=== PATIENT | male | born 1955 | race Caucasian/White ===

== ENCOUNTER 2017-07-07 10:17 | Emergency (ER) | payer OTHER ==
[2017-07-07] MEDS ORDERED: SODIUM CHLORIDE 0.9% 500 ML IV STA (11:31)
[2017-07-07] MEDS ORDERED: RX INFO: IV CONTRAST WAS GIVEN 1 EACH MISC MISCELLANE PRN (11:31)
[2017-07-07 12:08] LABS: HCT 44.8 % (39.0-53.0); HGB 15.2 gm/dL (13.0-17.5); MCH 30.9 pg (25.0-35.0); MCHC 33.9 g/dL (31.0-37.0); Mean Platelet Volume 6.9; Platelet Count 197 k/uL (150-450); RBC 4.93 m/uL (4.30-5.90); RDW 13.2 % (11.5-15.5); WBC 6.5 k/uL (3.8-10.6)
[2017-07-07 12:21] LABS: ALT 24 U/L (21-72); AST 23 U/L (17-59); Albumin 4.2 g/dL (3.5-5.0); Alkaline Phosphatase 71 U/L (38-126); Amylase 31 U/L (30-110); Anion Gap 11 mmol/L; Blood Urea Nitrogen 9 mg/dL (9-20); Carbon Dioxide 23 mmol/L (22-30); Chloride 108 mmol/L (98-107); Glucose 66 mg/dL (74-99); Lipase 61 U/L (23-300); Potassium 4.3 mmol/L (3.5-5.1); Sodium 142 mmol/L (137-145); Total Bilirubin 0.6 mg/dL (0.2-1.3); Total Protein 7.1 g/dL (6.3-8.2)
[2017-07-07 12:24] LABS: Basophils # (M) 0.07 k/uL (0-0.2); Lymphocytes # (M) 1.95 k/uL (1.0-4.8); Monocytes # (M) 0.91 k/uL (0-1.0); Neutrophils # (M) 3.38 k/uL (1.3-7.7); Neutrophils % (M) 52 %; Nucleated Red Blood Cells 0 /100 WBC (0-0); Total Cells Counted 100
--- NOTE | 2017-07-07 12:52 | ED ---
Abdominal Pain HPI - General Chief Complaint: Abdominal Pain Stated Complaint: LLQ PAIN Time Seen by Provider: 07/07/17 11:24 Source: patient, RN notes reviewed Mode of arrival: ambulatory Limitations: no limitations - History of Present Illness Initial Comments: 62-year-old male presents emergency Department with chief complaint of left- sided abdominal pain. Patient states pain started last night states at that time that was alleviated symptoms. It was worse when he lays onto his left side. Patient states she's had no change in bowel habits denies any diarrhea, constipation, hematemesis, coffee-ground emesis, hematochezia or melena. Patient states that he has no history of bowel infections including diverticulitis. Patient is concerned as his symptoms got worse last night after eating some [place] mix. Patient states the pain is improved at this time but still present. - Related Data Home Medications Medication Instructions Recorded Confirmed Sotalol [Betapace] 80 mg PO BID 12/29/15 07/07/17 Aspirin 325 mg PO DAILY 07/07/17 07/07/17 Metoprolol Succinate (ER) [Toprol 25 mg PO AC-LUNCH 07/07/17 07/07/17 Xl] Previous Rx's Medication Instructions Recorded Ciprofloxacin HCl [Cipro] 500 mg PO Q12HR #20 tablet 07/07/17 Hydrocodone/Acetaminophen [[place] 1 tab PO Q6HR PRN #15 tab 07/07/17 5-325] metroNIDAZOLE [Flagyl] 500 mg PO TID #30 tab 07/07/17 Allergies Allergy/AdvReac Type Severity Reaction Status Date / Time No Known Allergies Allergy Verified 07/07/17 12:26 Review of Systems ROS Statement: Those systems with pertinent positive or pertinent negative responses have been documented in the HPI. ROS Other: All systems not noted in ROS Statement are negative. Past Medical History Past Medical History: Atrial Fibrillation, Coronary Artery Disease (CAD), Chest Pain / Angina, Hyperlipidemia, Myocardial Infarction ([place]), Pneumonia, Pulmonary Embolus (PE), Syncope Additional Past Medical History / Comment(s): STATES on Lipitor Prophyllactic. Afib paraxysmal; OR in 2009 and 2011; Mild Heart Valve Prob. Blood Clot Removed Between Heart and 5th and 6th Ribs. RECENT SYNCOPAL EPISODE 12/29/15. Last Myocardial Infarction Date:: 2011 History of Any Multi-Drug Resistant Organisms: None Reported Past Surgical History: Coronary Bypass/CABG, Heart Catheterization With Stent Additional Past Surgical History / Comment(s): 08/2009 CABG with 7 vessel bypass ; C.Cath w/ Stents X2. Past Anesthesia/Blood Transfusion Reactions: No Reported Reaction Additional Past Anesthesia/Blood Transfusion Reaction / Comment(s): Pt received blood with CABG without reaction. Date of Last Stent Placement:: 02/13/12 Past Psychological History: No Psychological Hx Reported Smoking Status: Never smoker Past Alcohol Use History: None Reported Past Drug Use History: None Reported - Past Family History Father Family Medical History: Myocardial Infarction (OR) Additional Family Medical History / Comment(s): Father at the age of 58 yrs from a OR. Mother Family Medical History: Coronary Artery Disease (CAD) Additional Family Medical History / Comment(s): Mother at age 80 yrs. Brother(s) Family Medical History: Myocardial Infarction (OR) Additional Family Medical History / Comment(s): One brother at the age of 31 yrs from a OR. PT has other immediate family members with heart disease. General Exam Limitations: no limitations General appearance: alert, in no apparent distress Head exam: Present: atraumatic, normocephalic, normal inspection Respiratory exam: Present: normal lung sounds bilaterally. Absent: respiratory distress, wheezes, rales, rhonchi, stridor Cardiovascular Exam: Present: regular rate, normal rhythm, normal heart sounds. Absent: systolic murmur, diastolic murmur, rubs, gallop, clicks GI/Abdominal exam: Present: soft, tenderness (Mild left-sided abdominal tenderness), normal bowel sounds. Absent: distended, guarding, rebound, rigid Back exam: Absent: CVA tenderness (R), CVA tenderness (L) Course Vital Signs 07/07/17 10:53 Temperature 98.2 F Pulse Rate 57 L Respiratory 16 Rate Blood Pressure 147/78 O2 Sat by Pulse 96 Oximetry Medical Decision Making - Medical Decision Making 62-year-old male presented for left-sided abdominal pain. Patient's labwork shows mild hypoglycemia, otherwise unremarkable. Patient has CT shows evidence of diverticulitis without perforation or abscess. Patient was started on Cipro Flagyl and discharged advised to follow-up for recheck and return for any worsening symptoms. - Lab Data Result diagrams: 07/07/17 11:53 07/07/17 11:53 Lab Results 07/07/17 07/07/17 07/07/17 Range/Units 11:53 11:53 11:53 WBC 6.5 (3.8-10.6) k/uL RBC 4.93 (4.30-5.90) m/uL Hgb 15.2 (13.0-17.5) gm/dL Hct 44.8 (39.0-53.0) % MCV 91.0 (80.0-100.0) fL MCH 30.9 (25.0-35.0) pg MCHC 33.9 (31.0-37.0) g/dL RDW 13.2 (11.5-15.5) % Plt Count 197 (150-450) k/uL Neutrophils % (Manual) 52 % Lymphocytes % (Manual) 30 % Monocytes % (Manual) 14 % Eosinophils % (Manual) 3 % Basophils % (Manual) 1 % Neutrophils # (Manual) 3.38 (1.3-7.7) k/uL Lymphocytes # (Manual) 1.95 (1.0-4.8) k/uL Monocytes # (Manual) 0.91 (0-1.0) k/uL Eosinophils # (Manual) 0.20 (0-0.7) k/uL Basophils # (Manual) 0.07 (0-0.2) k/uL Nucleated RBCs 0 (0-0) /100 WBC Manual Slide Review Performed Sodium 142 (137-145) mmol/L Potassium 4.3 (3.5-5.1) mmol/L Chloride 108 H (98-107) mmol/L Carbon Dioxide 23 (22-30) mmol/L Anion Gap 11 mmol/L BUN 9 (9-20) mg/dL Creatinine 0.80 (0.66-1.25) mg/dL Est GFR (MDRD) Af Amer >60 (>60 ml/min/1.73 sqM) Est GFR (MDRD) Non-Af >60 (>60 ml/min/1.73 sqM) Glucose 66 L (74-99) mg/dL POC Glucose (mg/dL) (75-99) mg/dL POC Glu Breakfast Server ID Plasma Lactic Acid [place] 0.9 (0.7-2.0) mmol/L Calcium 10.0 (8.4-10.2) mg/dL Total Bilirubin 0.6 (0.2-1.3) mg/dL AST 23 (17-59) U/L ALT 24 (21-72) U/L Alkaline Phosphatase 71 (38-126) U/L Total Protein 7.1 (6.3-8.2) g/dL Albumin 4.2 (3.5-5.0) g/dL Amylase 31 (30-110) U/L Lipase 61 (23-300) U/L Urine Color Urine Appearance (Clear) Urine pH (5.0-8.0) Ur Specific [place] (1.001-1.035) Urine Protein (Negative) Urine Glucose (UA) (Negative) Urine Ketones (Negative) Urine Blood (Negative) Urine Nitrite (Negative) Urine Bilirubin (Negative) Urine Urobilinogen (<2.0) mg/dL Ur Leukocyte Esterase (Negative) 07/07/17 07/07/17 Range/Units 13:00 13:05 WBC (3.8-10.6) k/uL RBC (4.30-5.90) m/uL Hgb (13.0-17.5) gm/dL Hct (39.0-53.0) % MCV (80.0-100.0) fL MCH (25.0-35.0) pg MCHC (31.0-37.0) g/dL RDW (11.5-15.5) % Plt Count (150-450) k/uL Neutrophils % (Manual) % Lymphocytes % (Manual) % Monocytes % (Manual) % Eosinophils % (Manual) % Basophils % (Manual) % Neutrophils # (Manual) (1.3-7.7) k/uL Lymphocytes # (Manual) (1.0-4.8) k/uL Monocytes # (Manual) (0-1.0) k/uL Eosinophils # (Manual) (0-0.7) k/uL Basophils # (Manual) (0-0.2) k/uL Nucleated RBCs (0-0) /100 WBC Manual Slide Review Sodium (137-145) mmol/L Potassium (3.5-5.1) mmol/L Chloride (98-107) mmol/L Carbon Dioxide (22-30) mmol/L Anion Gap mmol/L BUN (9-20) mg/dL Creatinine (0.66-1.25) mg/dL Est GFR (MDRD) Af Amer (>60 ml/min/1.73 sqM) Est GFR (MDRD) Non-Af (>60 ml/min/1.73 sqM) Glucose (74-99) mg/dL POC Glucose (mg/dL) 68 L (75-99) mg/dL POC Glu Breakfast Server ID Silvana Rodrigues Plasma Lactic Acid Eloy (0.7-2.0) mmol/L Calcium (8.4-10.2) mg/dL Total Bilirubin (0.2-1.3) mg/dL AST (17-59) U/L ALT (21-72) U/L Alkaline Phosphatase (38-126) U/L Total Protein (6.3-8.2) g/dL Albumin (3.5-5.0) g/dL Amylase (30-110) U/L Lipase (23-300) U/L Urine Color Light Yellow Urine Appearance Clear (Clear) Urine pH 6.5 (5.0-8.0) Ur Specific [place] 1.004 (1.001-1.035) Urine Protein Negative (Negative) Urine Glucose (UA) Negative (Negative) Urine Ketones Negative (Negative) Urine Blood Negative (Negative) Urine Nitrite Negative (Negative) Urine Bilirubin Negative (Negative) Urine Urobilinogen <2.0 (<2.0) mg/dL Ur Leukocyte Esterase Negative (Negative) Disposition Clinical Impression: Acute diverticulitis Disposition: HOME SELF-CARE Condition: Stable Instructions: Diverticulitis (ED), Diverticulitis Diet (ED) Additional Instructions: Please return to the Emergency Department if symptoms worsen or any other concerns. Prescriptions: Ciprofloxacin HCl [Cipro] 500 mg PO Q12HR #20 tablet Hydrocodone/Acetaminophen [[place] 5-325] 1 tab PO Q6HR PRN #15 tab PRN Reason: Pain metroNIDAZOLE [Flagyl] 500 mg PO TID #30 tab Referrals: Raymundo Harkins MD [Primary Care Provider] - 1-2 days Time of Disposition: 13:18
[2017-07-07 13:01] LABS: Glucose,Whole Blood 68 mg/dL (75-99)
--- NOTE | 2017-07-07 13:04 | CT ---
EXAMINATION TYPE: CT abdomen pelvis w con DATE OF EXAM: 07/07/2017 REFERENCE: None. HISTORY: abdominal pain left sided HISTORY: Left sided abdominal pain. REFERENCE: NONE CT DLP: 959.4 mGy Automated exposure control for dose reduction was used. TECHNIQUE: Helical acquisition through the abdomen and pelvis was obtained following the oral ingesti on of without Oral Contrast and following intravenous administration of 100 mL of Omnipaque 300. The data was reformatted in axial, coronal and sagittal projections. FINDINGS: There is minimal dependent atelectasis in the dependent portions of the lungs. There is no pleural or pericardial fluid. The heart is mildly enlarged. Within the abdomen, there is a tiny hiatal hernia. The liver, spleen and gallbladder are normal. The pancreas is unremarkable. Both adrenal glands are normal. Both kidneys demonstrate function and appear morphologically normal. There is mild atheromatous calcification of the aorta. There is no significant retroperitoneal, iliac or inguinal adenopathy. The bladder is unremarkable. There are numerous diverticula within the sigmoid colon. There are scattered diverticula throughout t he remainder of the left side of the colon. There is mild inflammatory change adjacent to the mid phil cending colon suggestive of mild diverticulitis. The appendix is not visualized. Small bowel loops are of normal caliber. No free fluid and no free air is seen. There is degenerative disc disease and hypertrophic spondylosis at L4-5 and also degenerative disc di sease at L5-S1. There is mild hypertrophic spondylosis in the lower dorsal spine. IMPRESSION: 1. ACUTE DIVERTICULITIS WITHOUT EVIDENCE OF BOWEL PERFORATION OR ABSCESS FORMATION. 2. MILD CARDIOMEGALY. 3. TINY HIATAL HERNIA. 4. DEGENERATIVE CHANGES WITHIN THE SPINE.
[2017-07-07 13:16] LABS: Appearance,Urine Clear (Clear); Bilirubin,Urine Negative (Negative); Blood,Urine Negative (Negative); Color,Urine Light Yellow; Glucose,Urine (UA) Negative (Negative); Ketones,Urine Negative (Negative); Leukocyte Esterase,Urine Negative (Negative); Nitrite,Urine Negative (Negative); PH, Urine 6.5 (5.0-8.0); Protein,Urine Negative (Negative); Specific Gravity,Urine 1.004 (1.001-1.035); Urobilinogen,Urine <2.0 mg/dL (<2.0)
[2017-07-07] MEDS ORDERED: metroNIDAZOLE 500 MG TAB PO STA (13:16)
[2017-07-07] MEDS ORDERED: CIPROFLOXACIN HCL 500 MG TAB PO STA (13:16)
[2017-07-07 13:21] LABS: Glucose,Whole Blood 99 mg/dL (75-99)
[2017-07-07 13:49] LABS: Glucose,Whole Blood 117 mg/dL (75-99)
[2017-07-07 13:50] VITALS: BP 136/65; PULSE 66; RESP 18; TEMP 97.5
== END 2017-07-07 13:53 | disposition home or self-care (01) ==
LOC: EC 10:17
DX: K57.92 Diverticulitis of intestine, part unspecified, without perforation or abscess without bleeding (principal); E16.2 Hypoglycemia, unspecified; I48.0 Paroxysmal atrial fibrillation; E78.5 Hyperlipidemia, unspecified; I25.10 Atherosclerotic heart disease of native coronary artery without angina pectoris; I25.2 Old myocardial infarction; Z79.82 Long term (current) use of aspirin; Z79.899 Other long term (current) drug therapy; Z86.79 Personal history of other diseases of the circulatory system
CPT/HCPCS: 36415; 80053; 82150; 83605; 83690; 85025; 81003; 74177; 99284; 96360; Q9967

== ENCOUNTER 2018-03-11 16:12 | Emergency (ER) | payer OTHER ==
[2018-03-11 16:16] VITALS: TEMP 98.7
[2018-03-11 17:52] LABS: Basophils # (A) 0.1 k/uL (0-0.2); Basophils % (A) 1 %; Eosinophils # (A) 0.2 k/uL (0-0.7); Eosinophils % (A) 3 %; HCT 45.4 % (39.0-53.0); HGB 16.1 gm/dL (13.0-17.5); Lymphocytes # (A) 1.6 k/uL (1.0-4.8); Lymphocytes % (A) 32 %; MCH 31.5 pg (25.0-35.0); MCHC 35.4 g/dL (31.0-37.0); MCV 88.9 fL (80.0-100.0); Mean Platelet Volume 7.1; Monocytes # (A) 0.5 k/uL (0-1.0); Monocytes % (A) 10 %; Neutrophils # (A) 2.4 k/uL (1.3-7.7); Neutrophils % (A) 47 %; Platelet Count 190 k/uL (150-450); RBC 5.11 m/uL (4.30-5.90); RDW 12.8 % (11.5-15.5)
--- NOTE | 2018-03-11 18:01 | ED ---
Recheck HPI - General Chief Complaint: Recheck/Abnormal Lab/Rx Stated Complaint: HTN, abn heart rate Time Seen by Provider: 03/11/18 16:35 Source: patient, RN notes reviewed, old records reviewed Mode of arrival: ambulatory Limitations: no limitations - History of Present Illness Initial Comments: 62-year-old male presents emergency department today with chief complaint of episodes of "tachycardia,". Patient reports that her rate was 77. He states that he also had an elevated blood pressure today at 209/93. He reports having multiple stenting procedures and has had a history of 3 heart attacks in the past. Patient reports that December for a few was given hospital they did a cardiac cath on the Patient and it was noted to be clear. Patient reports that today he felt himself go into atrial fibrillation and that was when he rechecked his blood pressure. Patient states that he had no fevers or chills. Today he denies any chest pain or shortness of breath. He reports that when he was having an episode of A. fib he felt very short of breath at that time but subsequently resolved. He felt himself go back into normal rhythm when he arrived to the emergency department. Patient's metal forger's assistant is Dr. Menendez and Dr. Raines. - Related Data Home Medications Medication Instructions Recorded Confirmed Sotalol [Betapace] 80 mg PO BID 12/29/15 03/11/18 Aspirin 325 mg PO DAILY 07/07/17 03/11/18 Metoprolol Succinate (ER) [Toprol 25 mg PO DAILY 07/07/17 03/11/18 Xl] Omeprazole [PriLOSEC] 40 mg PO DAILY 03/11/18 03/11/18 Rosuvastatin Calcium [Crestor] 40 mg PO HS 03/11/18 03/11/18 Allergies Allergy/AdvReac Type Severity Reaction Status Date / Time No Known Allergies Allergy Verified 03/11/18 16:55 Review of Systems ROS Statement: Those systems with pertinent positive or pertinent negative responses have been documented in the HPI. ROS Other: All systems not noted in ROS Statement are negative. Past Medical History Past Medical History: Atrial Fibrillation, Coronary Artery Disease (CAD), Chest Pain / Angina, Hyperlipidemia, Myocardial Infarction ([place]), Pneumonia, Pulmonary Embolus (PE), Syncope Additional Past Medical History / Comment(s): STATES on Lipitor Prophyllactic. Afib paraxysmal; [place] in 2009 and 2011; Mild Heart Valve Prob. Blood Clot Removed Between Heart and 5th and 6th Ribs. RECENT SYNCOPAL EPISODE 12/29/15. Last Myocardial Infarction Date:: 2011 History of Any Multi-Drug Resistant Organisms: None Reported Past Surgical History: Coronary Bypass/CABG, Heart Catheterization With Stent Additional Past Surgical History / Comment(s): 08/2009 CABG with 7 vessel bypass ; C.Cath w/ Stents X2. Past Anesthesia/Blood Transfusion Reactions: No Reported Reaction Additional Past Anesthesia/Blood Transfusion Reaction / Comment(s): Pt received blood with CABG without reaction. Date of Last Stent Placement:: 02/13/12 Past Psychological History: No Psychological Hx Reported Smoking Status: Never smoker Past Alcohol Use History: None Reported Past Drug Use History: None Reported - Past Family History Father Family Medical History: Myocardial Infarction ([place]) Additional Family Medical History / Comment(s): Father at the age of 58 yrs from a [place]. Mother Family Medical History: Coronary Artery Disease (CAD) Additional Family Medical History / Comment(s): Mother at age 80 yrs. Brother(s) Family Medical History: Myocardial Infarction (AL) Additional Family Medical History / Comment(s): One brother at the age of 31 yrs from a AL. PT has other immediate family members with heart disease. General Exam - General Exam Comments Initial Comments: This is a 62-year-old male. Alert and oriented. No significant distress. Limitations: no limitations General appearance: alert, in no apparent distress Head exam: Present: atraumatic, normocephalic, normal inspection Eye exam: Present: normal appearance, PERRL, EOMI. Absent: scleral icterus, conjunctival injection, periorbital swelling ENT exam: Present: normal exam, mucous membranes moist Neck exam: Present: normal inspection. Absent: tenderness, meningismus, lymphadenopathy Respiratory exam: Present: normal lung sounds bilaterally. Absent: respiratory distress, wheezes, rales, rhonchi, stridor Cardiovascular Exam: Present: regular rate, normal rhythm, normal heart sounds. Absent: systolic murmur, diastolic murmur, rubs, gallop, clicks GI/Abdominal exam: Present: soft, normal bowel sounds. Absent: distended, tenderness, guarding, rebound, rigid Extremities exam: Present: normal inspection, full ROM, normal capillary refill. Absent: tenderness, pedal edema, joint swelling, calf tenderness Back exam: Present: normal inspection Neurological exam: Present: alert, oriented X3, CN II-XII intact Psychiatric exam: Present: normal affect, normal mood Course Vital Signs 03/11/18 03/11/18 03/11/18 16:13 18:26 19:04 Temperature 98.7 F Pulse Rate 70 60 62 Respiratory 18 16 18 Rate Blood Pressure 192/93 141/78 163/79 O2 Sat by Pulse 96 95 94 L Oximetry Medical Decision Making - Medical Decision Making 62-year-old male presents emergency department today with isolated blood pressure episode and complained of some his heart was in atrial fibrillation and felt short of breath that time. He denies any chest pain. He states he feels well this time. Patient's blood pressure upon arrival is 160/74. His at- home pulp restraints were 209/93. Patient at this time states he otherwise feels well. He does have a history of cardiac stenting. This any EKG shows evidence of any acute abnormalities. His vital signs are stable. Pressure is within normal limits at this time. Patient's initial troponin is negative. Patient is on daily aspirin, no further blood thinner. Patient has been informed of this in 19 question to him why he is on a blood thinner. He reports insurance dictated that he had to be on Coumadin versus Neurontin and he states that he does not want to be on any further blood thinner. Patient has had multiple cardiologists follow-up with him in regards to this. This and he states he feels well and denies any chest pain or any other symptoms. We will discharge the Patient and have close follow-up with his primary care physician and metal forger's assistant. He does have an appointment April 11 at [facility]. Discussed trying Kristan in sooner. Patient understands treatment plan will comply. - Lab Data Result diagrams: 03/11/18 17:43 03/11/18 17:43 Lab Results 03/11/18 03/11/18 03/11/18 Range/Units 17:43 17:43 17:43 WBC 5.0 (3.8-10.6) k/uL RBC 5.11 (4.30-5.90) m/uL Hgb 16.1 (13.0-17.5) gm/dL Hct 45.4 (39.0-53.0) % MCV 88.9 (80.0-100.0) fL MCH 31.5 (25.0-35.0) pg MCHC 35.4 (31.0-37.0) g/dL RDW 12.8 (11.5-15.5) % Plt Count 190 (150-450) k/uL Neutrophils % 47 % Lymphocytes % 32 % Monocytes % 10 % Eosinophils % 3 % Basophils % 1 % Neutrophils # 2.4 (1.3-7.7) k/uL Lymphocytes # 1.6 (1.0-4.8) k/uL Monocytes # 0.5 (0-1.0) k/uL Eosinophils # 0.2 (0-0.7) k/uL Basophils # 0.1 (0-0.2) k/uL PT (9.0-12.0) sec INR (<1.2) APTT (22.0-30.0) sec Sodium 140 (137-145) mmol/L Potassium 4.5 (3.5-5.1) mmol/L Chloride 107 (98-107) mmol/L Carbon Dioxide 25 (22-30) mmol/L Anion Gap 8 mmol/L BUN 14 (9-20) mg/dL Creatinine 0.99 (0.66-1.25) mg/dL Est GFR (CKD-EPI)AfAm >90 (>60 ml/min/1.73 sqM) Est GFR (CKD-EPI)NonAf 81 (>60 ml/min/1.73 sqM) Glucose 97 (74-99) mg/dL Calcium 9.7 (8.4-10.2) mg/dL Magnesium 2.1 (1.6-2.3) mg/dL Total Bilirubin 0.5 (0.2-1.3) mg/dL AST 28 (17-59) U/L ALT 20 L (21-72) U/L Alkaline Phosphatase 74 (38-126) U/L Total Creatine Kinase 58 (55-170) U/L CK-MB (CK-2) 0.8 (0.0-2.4) ng/mL CK-MB (CK-2) Rel Index 1.4 Troponin I <0.012 (0.000-0.034) ng/mL Total Protein 7.3 (6.3-8.2) g/dL Albumin 4.2 (3.5-5.0) g/dL 03/11/18 Range/Units 17:43 WBC (3.8-10.6) k/uL RBC (4.30-5.90) m/uL Hgb (13.0-17.5) gm/dL Hct (39.0-53.0) % MCV (80.0-100.0) fL MCH (25.0-35.0) pg MCHC (31.0-37.0) g/dL RDW (11.5-15.5) % Plt Count (150-450) k/uL Neutrophils % % Lymphocytes % % Monocytes % % Eosinophils % % Basophils % % Neutrophils # (1.3-7.7) k/uL Lymphocytes # (1.0-4.8) k/uL Monocytes # (0-1.0) k/uL Eosinophils # (0-0.7) k/uL Basophils # (0-0.2) k/uL PT 9.4 (9.0-12.0) sec INR 0.9 (<1.2) APTT 22.8 (22.0-30.0) sec Sodium (137-145) mmol/L Potassium (3.5-5.1) mmol/L Chloride (98-107) mmol/L Carbon Dioxide (22-30) mmol/L Anion Gap mmol/L BUN (9-20) mg/dL Creatinine (0.66-1.25) mg/dL Est GFR (CKD-EPI)AfAm (>60 ml/min/1.73 sqM) Est GFR (CKD-EPI)NonAf (>60 ml/min/1.73 sqM) Glucose (74-99) mg/dL Calcium (8.4-10.2) mg/dL Magnesium (1.6-2.3) mg/dL Total Bilirubin (0.2-1.3) mg/dL AST (17-59) U/L ALT (21-72) U/L Alkaline Phosphatase (38-126) U/L Total Creatine Kinase (55-170) U/L CK-MB (CK-2) (0.0-2.4) ng/mL CK-MB (CK-2) Rel Index Troponin I (0.000-0.034) ng/mL Total Protein (6.3-8.2) g/dL Albumin (3.5-5.0) g/dL 03/11/18 19:12 EKG shows sinus rhythm nonspecific T-wave abnormality. Ventricular rate 64 bpm period. It was 170 ms. QRS ration 96. QTQTC's were 22/435 ms. No evidence of ST elevation or T-wave inversion. No evidence of atrial ventricular arrhythmias. - Radiology Data Radiology results: report reviewed Chest x-ray is negative for any acute disease. Disposition Clinical Impression: Episode of hypertension Disposition: HOME SELF-CARE Condition: Good Instructions: Hypertension (ED) Additional Instructions: Patient has follow-up with primary care physician and metal forger's assistant. Return to emergency department if the symptoms recurred of any alarming signs or symptoms occur. Is patient prescribed a controlled substance at d/c from ED?: No Referrals: Raymundo Harkins MD [Primary Care Provider] - 1-2 days Time of Disposition: 19:25
[2018-03-11 18:03] LABS: ALT 20 U/L (21-72); AST 28 U/L (17-59); Albumin 4.2 g/dL (3.5-5.0); Alkaline Phosphatase 74 U/L (38-126); Anion Gap 8 mmol/L; Blood Urea Nitrogen 14 mg/dL (9-20); Calcium 9.7 mg/dL (8.4-10.2); Carbon Dioxide 25 mmol/L (22-30); Chloride 107 mmol/L (98-107); Creatine Kinase 58 U/L (55-170); Glucose 97 mg/dL (74-99); INR 0.9 (<1.2); Magnesium 2.1 mg/dL (1.6-2.3); Potassium 4.5 mmol/L (3.5-5.1); Sodium 140 mmol/L (137-145); Total Bilirubin 0.5 mg/dL (0.2-1.3); Total Protein 7.3 g/dL (6.3-8.2)
[2018-03-11 18:04] LABS: Partial Thromboplastin Time 22.8 sec (22.0-30.0); Prothrombin Time 9.4 sec (9.0-12.0)
--- NOTE | 2018-03-11 18:11 | XR ---
EXAMINATION TYPE: XR chest 2V DATE OF EXAM: 03/11/2018 COMPARISON: NONE HISTORY: 05/14/2016 TECHNIQUE: Frontal and lateral views of the chest are obtained. FINDINGS: Heart is enlarged. There is no heart failure. There are sternal wires. Costophrenic angles are clear. Lungs are clear of infiltrate. Bony thorax appears intact. IMPRESSION: No active cardiopulmonary disease. No change.
[2018-03-11 18:15] LABS: Creatine Kinase MB 0.8 ng/mL (0.0-2.4); Troponin I <0.012 ng/mL (0.000-0.034)
[2018-03-11 19:06] VITALS: RESP 18
[2018-03-11 19:13] VITALS: BP 148/75
[2018-03-11 19:35] VITALS: PULSE 61
== END 2018-03-11 19:30 | disposition home or self-care (01) ==
LOC: EC 16:12
DX: I10 Essential (primary) hypertension (principal); R00.0 Tachycardia, unspecified; I48.91 Unspecified atrial fibrillation; I25.119 Atherosclerotic heart disease of native coronary artery with unspecified angina pectoris; E78.5 Hyperlipidemia, unspecified; I25.2 Old myocardial infarction; Z79.82 Long term (current) use of aspirin; Z79.899 Other long term (current) drug therapy; Z95.1 Presence of aortocoronary bypass graft; Z95.5 Presence of coronary angioplasty implant and graft; Z82.49 Family history of ischemic heart disease and other diseases of the circulatory system
CPT/HCPCS: 36415; 71046; 80053; 82550; 82553; 83735; 84484; 85025; 85610; 85730; 93005; 99285

== ENCOUNTER 2018-03-16 15:57 | Emergency (ER) | payer OTHER ==
[2018-03-16 16:01] VITALS: RESP 18
[2018-03-16] MEDS ORDERED: SODIUM CHLORIDE 0.9% 1,000 ML IV STA (16:19)
[2018-03-16] MEDS ORDERED: LABETALOL 5 MG/ML VIAL MDV IVP STA ×2 (16:20→20:04)
--- NOTE | 2018-03-16 16:53 | XR ---
EXAMINATION TYPE: XR chest 2V DATE OF EXAM: 03/16/2018 COMPARISON: 03/11/2018 INDICATION: Chest pain and hypertension TECHNIQUE: Frontal and lateral views of the chest are obtained. FINDINGS: The heart size is normal. The pulmonary vasculature is normal. The lungs are clear. Sternotomy wires are in the midline. EKG leads overlie the chest. IMPRESSION: 1. No acute pulmonary process.
[2018-03-16 16:54] LABS: HCT 46.8 % (39.0-53.0); HGB 15.9 gm/dL (13.0-17.5); MCH 30.3 pg (25.0-35.0); MCHC 34.1 g/dL (31.0-37.0); Mean Platelet Volume 7.3; Platelet Count 193 k/uL (150-450); RBC 5.26 m/uL (4.30-5.90); RDW 12.8 % (11.5-15.5); WBC 6.1 k/uL (3.8-10.6)
[2018-03-16 17:05] LABS: ALT 26 U/L (21-72); AST 27 U/L (17-59); Albumin 4.4 g/dL (3.5-5.0); Alkaline Phosphatase 72 U/L (38-126); Anion Gap 9 mmol/L; Blood Urea Nitrogen 16 mg/dL (9-20); Calcium 10.2 mg/dL (8.4-10.2); Carbon Dioxide 25 mmol/L (22-30); Chloride 106 mmol/L (98-107); Glucose 97 mg/dL (74-99); Lipase 71 U/L (23-300); Magnesium 2.1 mg/dL (1.6-2.3); Potassium 4.5 mmol/L (3.5-5.1); Sodium 140 mmol/L (137-145); Total Bilirubin 0.6 mg/dL (0.2-1.3); Total Protein 7.7 g/dL (6.3-8.2)
[2018-03-16 17:07] LABS: Partial Thromboplastin Time 24.7 sec (22.0-30.0); Prothrombin Time 9.9 sec (9.0-12.0)
[2018-03-16 17:10] LABS: Creatine Kinase 68 U/L (55-170)
[2018-03-16 17:23] LABS: Troponin I <0.012 ng/mL (0.000-0.034)
[2018-03-16 17:30] LABS: D-Dimer 0.94 mg/L FEU (<0.60)
--- NOTE | 2018-03-16 18:02 | ED ---
General Adult HPI - General Chief complaint: Chest Pain Stated complaint: High blood pressure Time Seen by Provider: 03/16/18 16:01 Source: patient, RN notes reviewed, old records reviewed Mode of arrival: ambulatory Limitations: no limitations - History of Present Illness Initial comments: This is a 62-year-old male the ER for evaluation. Patient comes in with episodic chest pain shortness of breath. Patient has history of [place] history of stents. Patient coming in with also elevated blood pressure blood pressure been elevated for about a week he does take his blood pressure home and has no history of hypertension. Patient takes metoprolol for his A. fib. Patient has and feels like he's had A. fib once or twice recently. No travel history no sick contacts no fevers no cough no congestion. Patient coming in for evaluation regarding blood pressure. Patient was seen early ER earlier this week as well as family doctor's office and spoke with [employer] operator today and was told to come to emergency room to have further evaluation of blood pressure elevation - Related Data Home Medications Medication Instructions Recorded Confirmed Sotalol [Betapace] 80 mg PO BID 12/29/15 03/16/18 Aspirin 325 mg PO DAILY 07/07/17 03/16/18 Metoprolol Succinate (ER) [Toprol 25 mg PO DAILY 07/07/17 03/16/18 Xl] Rosuvastatin Calcium [Crestor] 40 mg PO HS 03/11/18 03/16/18 Allergies Allergy/AdvReac Type Severity Reaction Status Date / Time No Known Allergies Allergy Verified 03/16/18 16:46 Review of Systems ROS Statement: Those systems with pertinent positive or pertinent negative responses have been documented in the HPI. ROS Other: All systems not noted in ROS Statement are negative. Past Medical History Past Medical History: Atrial Fibrillation, Coronary Artery Disease (CAD), Chest Pain / Angina, Hyperlipidemia, Myocardial Infarction ([place]), Pneumonia, Pulmonary Embolus (PE), Syncope Additional Past Medical History / Comment(s): [place] on Lipitor Prophyllactic. Afib paraxysmal; [place] in 2009 and 2011; Mild Heart Valve Prob. Blood Clot Removed Between Heart and 5th and 6th Ribs. RECENT SYNCOPAL EPISODE 12/29/15. Last Myocardial Infarction Date:: 2011 History of Any Multi-Drug Resistant Organisms: None Reported Past Surgical History: Coronary Bypass/CABG, Heart Catheterization With Stent Additional Past Surgical History / Comment(s): 08/2009 CABG with 7 vessel bypass ; C.Cath w/ Stents X2. Past Anesthesia/Blood Transfusion Reactions: No Reported Reaction Additional Past Anesthesia/Blood Transfusion Reaction / Comment(s): Pt received blood with CABG without reaction. Date of Last Stent Placement:: 02/13/12 Past Psychological History: No Psychological Hx Reported Smoking Status: Never smoker Past Alcohol Use History: None Reported Past Drug Use History: None Reported - Past Family History Father Family Medical History: Myocardial Infarction ([place]) Additional Family Medical History / Comment(s): Father at the age of 58 yrs from a [place]. Mother Family Medical History: Coronary Artery Disease (CAD) Additional Family Medical History / Comment(s): Mother at age 80 yrs. Brother(s) Family Medical History: Myocardial Infarction ([place]) Additional Family Medical History / Comment(s): One brother at the age of 31 yrs from a [place]. PT has other immediate family members with heart disease. General Exam Limitations: no limitations General appearance: alert, in no apparent distress Head exam: Present: atraumatic, normocephalic, normal inspection Eye exam: Present: normal appearance, PERRL, EOMI. Absent: scleral icterus, conjunctival injection, periorbital swelling ENT exam: Present: normal exam, mucous membranes moist Neck exam: Present: normal inspection. Absent: tenderness, meningismus, lymphadenopathy Respiratory exam: Present: normal lung sounds bilaterally. Absent: respiratory distress, wheezes, rales, rhonchi, stridor Cardiovascular Exam: Present: regular rate, normal rhythm, normal heart sounds. Absent: systolic murmur, diastolic murmur, rubs, gallop, clicks GI/Abdominal exam: Present: soft, normal bowel sounds. Absent: distended, tenderness, guarding, rebound, rigid Extremities exam: Present: normal inspection, full ROM, normal capillary refill. Absent: tenderness, pedal edema, joint swelling, calf tenderness Back exam: Present: normal inspection Neurological exam: Present: alert, oriented X3, CN II-XII intact Psychiatric exam: Present: normal affect, normal mood Skin exam: Present: warm, dry, intact, normal color. Absent: rash Course Vital Signs 03/16/18 03/16/18 03/16/18 15:58 16:20 16:30 Temperature 98.4 F Pulse Rate 69 73 75 Respiratory 18 18 18 Rate Blood Pressure 185/102 173/95 165/92 O2 Sat by Pulse 96 Oximetry 03/16/18 03/16/18 17:16 19:16 Temperature 97.8 F Pulse Rate 68 61 Respiratory 18 18 Rate Blood Pressure 140/65 122/73 O2 Sat by Pulse 95 Oximetry - Reevaluation(s) Reevaluation #1: 03/16/18 17:59 Medical record, prior ER record is reviewed Reevaluation #2: 03/16/18 17:59 Patient is blood pressure is significantly improved with medication here in ER EKG Findings - EKG Comments: EKG Findings:: EKG shows sinus rhythm rate of 77, MT 170, QRS 96 QTc 461 Medical Decision Making - Medical Decision Making 59 female the ER with unspecified blood pressure elevation. Patient will have increased blood pressure medication dose. Patient will follow-up with cardiology - Lab Data Result diagrams: 03/16/18 16:20 03/16/18 16:20 Lab Results 03/16/18 03/16/18 03/16/18 Range/Units 16:20 16:20 16:20 WBC 6.1 (3.8-10.6) k/uL RBC 5.26 (4.30-5.90) m/uL Hgb 15.9 (13.0-17.5) gm/dL Hct 46.8 (39.0-53.0) % MCV 89.0 (80.0-100.0) fL MCH 30.3 (25.0-35.0) pg MCHC 34.1 (31.0-37.0) g/dL RDW 12.8 (11.5-15.5) % Plt Count 193 (150-450) k/uL Neutrophils % (Manual) 53 % Lymphocytes % (Manual) 38 % Monocytes % (Manual) 6 % Eosinophils % (Manual) 3 % Neutrophils # (Manual) 3.23 (1.3-7.7) k/uL Lymphocytes # (Manual) 2.32 (1.0-4.8) k/uL Monocytes # (Manual) 0.37 (0-1.0) k/uL Eosinophils # (Manual) 0.18 (0-0.7) k/uL Nucleated RBCs 0 (0-0) /100 WBC Manual Slide Review Performed PT (9.0-12.0) sec INR (<1.2) APTT (22.0-30.0) sec D-Dimer (<0.60) mg/L FEU Sodium 140 (137-145) mmol/L Potassium 4.5 (3.5-5.1) mmol/L Chloride 106 (98-107) mmol/L Carbon Dioxide 25 (22-30) mmol/L Anion Gap 9 mmol/L BUN 16 (9-20) mg/dL Creatinine 0.92 (0.66-1.25) mg/dL Est GFR (CKD-EPI)AfAm >90 (>60 ml/min/1.73 sqM) Est GFR (CKD-EPI)NonAf 88 (>60 ml/min/1.73 sqM) Glucose 97 (74-99) mg/dL Calcium 10.2 (8.4-10.2) mg/dL Magnesium 2.1 (1.6-2.3) mg/dL Total Bilirubin 0.6 (0.2-1.3) mg/dL AST 27 (17-59) U/L ALT 26 (21-72) U/L Alkaline Phosphatase 72 (38-126) U/L Total Creatine Kinase 68 (55-170) U/L CK-MB (CK-2) 1.0 (0.0-2.4) ng/mL CK-MB (CK-2) Rel Index 1.5 Troponin I <0.012 (0.000-0.034) ng/mL NT-Pro-B Natriuret Pep pg/mL Total Protein 7.7 (6.3-8.2) g/dL Albumin 4.4 (3.5-5.0) g/dL Lipase 71 (23-300) U/L 03/16/18 03/16/18 Range/Units 16:20 16:20 WBC (3.8-10.6) k/uL RBC (4.30-5.90) m/uL Hgb (13.0-17.5) gm/dL Hct (39.0-53.0) % MCV (80.0-100.0) fL MCH (25.0-35.0) pg MCHC (31.0-37.0) g/dL RDW (11.5-15.5) % Plt Count (150-450) k/uL Neutrophils % (Manual) % Lymphocytes % (Manual) % Monocytes % (Manual) % Eosinophils % (Manual) % Neutrophils # (Manual) (1.3-7.7) k/uL Lymphocytes # (Manual) (1.0-4.8) k/uL Monocytes # (Manual) (0-1.0) k/uL Eosinophils # (Manual) (0-0.7) k/uL Nucleated RBCs (0-0) /100 WBC Manual Slide Review PT 9.9 (9.0-12.0) sec INR 1.0 (<1.2) APTT 24.7 (22.0-30.0) sec D-Dimer 0.94 H (<0.60) mg/L FEU Sodium (137-145) mmol/L Potassium (3.5-5.1) mmol/L Chloride (98-107) mmol/L Carbon Dioxide (22-30) mmol/L Anion Gap mmol/L BUN (9-20) mg/dL Creatinine (0.66-1.25) mg/dL Est GFR (CKD-EPI)AfAm (>60 ml/min/1.73 sqM) Est GFR (CKD-EPI)NonAf (>60 ml/min/1.73 sqM) Glucose (74-99) mg/dL Calcium (8.4-10.2) mg/dL Magnesium (1.6-2.3) mg/dL Total Bilirubin (0.2-1.3) mg/dL AST (17-59) U/L ALT (21-72) U/L Alkaline Phosphatase (38-126) U/L Total Creatine Kinase (55-170) U/L CK-MB (CK-2) (0.0-2.4) ng/mL CK-MB (CK-2) Rel Index Troponin I (0.000-0.034) ng/mL NT-Pro-B Natriuret Pep 120 pg/mL Total Protein (6.3-8.2) g/dL Albumin (3.5-5.0) g/dL Lipase (23-300) U/L - Radiology Data Radiology results: report reviewed (Chest x-rays negative for acute disease, CTA chest), image reviewed Disposition Clinical Impression: Atypical chest pain, Episode of hypertension, Hypertension Disposition: HOME SELF-CARE Condition: Good Instructions: Hypertension (ED) Is patient prescribed a controlled substance at d/c from ED?: No Referrals: Raymundo Harkins MD [Primary Care Provider] - 1-2 days
[2018-03-16 18:43] LABS: Eosinophils # (M) 0.18 k/uL (0-0.7); Lymphocytes # (M) 2.32 k/uL (1.0-4.8); Monocytes # (M) 0.37 k/uL (0-1.0); Neutrophils # (M) 3.23 k/uL (1.3-7.7); Neutrophils % (M) 53 %; Nucleated Red Blood Cells 0 /100 WBC (0-0); Total Cells Counted 100
--- NOTE | 2018-03-16 18:55 | CT ---
CT CHEST FOR PULMONARY EMBOLISM. EXAMINATION TYPE: CT angio chest DATE OF EXAM: 03/16/2018 INDICATION: pain CT DLP: 280.5 mGycm, Automated exposure control for dose reduction was used. CONTRAST: Patient injected with 100 mL of Isovue 370. COMPARISON: 03/12/2012 TECHNIQUE: CT of the chest is performed on a spiral scan at 2 mm thick sections. Study is performed with intravenous contrast timed for evaluation for pulmonary embolism. This will limit additional po rtions of the evaluation. 3-D MIP images reconstructed by the technologist are reviewed on the compu ter in the coronal and sagittal planes. FINDINGS: No persistent filling defects are evident to suggest an acute pulmonary embolism. No mediastinal or hilar adenopathy enlarged by CT criteria is evident. The ascending aorta diameter at the level of the main pulmonary artery is 4.1 cm. The main pulmonary artery diameter at the bifur cation is 2.9 cm. Lung windows are clear. Limited CT section through the upper abdomen are unremarkable. IMPRESSIONS: 1. No acute pulmonary embolism. 2. Ascending thoracic aortic aneurysm of 4.1 cm, increased from comparison 2011
[2018-03-16 20:35] VITALS: BP 152/77; PULSE 67; TEMP 97
== END 2018-03-16 20:33 | disposition home or self-care (01) ==
LOC: EC 15:57
DX: R07.89 Other chest pain (principal); I10 Essential (primary) hypertension; I25.119 Atherosclerotic heart disease of native coronary artery with unspecified angina pectoris; I25.2 Old myocardial infarction; I48.0 Paroxysmal atrial fibrillation; E78.5 Hyperlipidemia, unspecified; Z79.82 Long term (current) use of aspirin; Z79.899 Other long term (current) drug therapy; Z86.711 Personal history of pulmonary embolism; Z95.1 Presence of aortocoronary bypass graft; Z95.5 Presence of coronary angioplasty implant and graft
CPT/HCPCS: 36415; 93005; 85379; 83880; 80053; 82550; 82553; 83690; 83735; 84484; 85025; 85610; 85730; 71046; 71275; 99285; 96374; 96376; 96361 ×4; Q9967

== ENCOUNTER 2018-09-29 10:40 | Observation (INO) | payer OTHER ==
[2018-09-29] MEDS ORDERED: SODIUM CHLORIDE 0.9% 500 ML 500 ML IV STA (11:06)
--- NOTE | 2018-09-29 11:10 | ED ---
General Adult HPI - General Chief complaint: Dizziness Stated complaint: Near syncope Time Seen by Provider: 09/29/18 10:43 Source: patient, EMS, RN notes reviewed Mode of arrival: EMS Limitations: no limitations - History of Present Illness Initial comments: Patient is a pleasant [age]-year-old male presenting to the emergency Department with near syncopal episode. Patient was at [employer] when he got up and walked around 5 or 10 feet and became extremely lightheaded and dizzy and near syncopal. Patient was sweaty. Patient was also sweaty this morning when he was trying to get dressed. Patient has had some mild chest pressure over the past day or 2 and may have had a minimal amount today. Patient is near symptom-free at this time other than feeling somewhat cool. Patient does have a history of similar symptoms previously. Patient does have a history of previous syncopal episodes. does have previous cardiac history as well as history of pulmonary embolism and thoracic aorta aneurysm. Patient is not on any blood thinners at this point. - Related Data Home Medications Medication Instructions Recorded Confirmed Sotalol [Betapace] 80 mg PO BID 12/29/15 09/29/18 Aspirin 325 mg PO DAILY 07/07/17 09/29/18 Hydrochlorothiazide [Hydrodiuril] 25 mg PO DAILY 09/29/18 09/29/18 Lisinopril [Zestril] 20 mg PO DAILY 09/29/18 09/29/18 Metoprolol Succinate (ER) [Toprol 50 mg PO BID 09/29/18 09/29/18 XL] Omeprazole 20 mg PO DAILY 09/29/18 09/29/18 Allergies Allergy/AdvReac Type Severity Reaction Status Date / Time No Known Allergies Allergy Verified 09/29/18 11:20 Review of Systems ROS Statement: Those systems with pertinent positive or pertinent negative responses have been documented in the HPI. ROS Other: All systems not noted in ROS Statement are negative. Constitutional: Denies: fever Eyes: Denies: eye pain ENT: Denies: ear pain Respiratory: Denies: cough Cardiovascular: Reports: as per HPI, chest pain Endocrine: Denies: fatigue Gastrointestinal: Denies: abdominal pain Genitourinary: Denies: dysuria Musculoskeletal: Denies: back pain Skin: Denies: rash Neurological: Denies: weakness Past Medical History Past Medical History: Atrial Fibrillation, Coronary Artery Disease (CAD), Chest Pain / Angina, Hyperlipidemia, Myocardial Infarction ([place]), Pneumonia, Pulmonary Embolus (PE), Syncope Additional Past Medical History / Comment(s): STATES on Lipitor Prophyllactic. Afib paraxysmal; [place] in 2009 and 2011; Mild Heart Valve Prob. Blood Clot Removed Between Heart and 5th and 6th Ribs. RECENT SYNCOPAL EPISODE 12/29/15. Last Myocardial Infarction Date:: 2011 History of Any Multi-Drug Resistant Organisms: None Reported Past Surgical History: Coronary Bypass/CABG, Heart Catheterization With Stent Additional Past Surgical History / Comment(s): 08/2009 CABG with 7 vessel bypass; C.Cath w/ Stents X2. Past Anesthesia/Blood Transfusion Reactions: No Reported Reaction Additional Past Anesthesia/Blood Transfusion Reaction / Comment(s): Pt received blood with CABG without reaction. Date of Last Stent Placement:: 02/13/12 Past Psychological History: No Psychological Hx Reported Smoking Status: Never smoker Past Alcohol Use History: None Reported Past Drug Use History: None Reported - Past Family History Father Family Medical History: Myocardial Infarction ([place]) Additional Family Medical History / Comment(s): Father at the age of 58 yrs from a [place]. Mother Family Medical History: Coronary Artery Disease (CAD) Additional Family Medical History / Comment(s): Mother at age 80 yrs. Brother(s) Family Medical History: Myocardial Infarction ([place]) Additional Family Medical History / Comment(s): One brother at the age of 31 yrs from a [place]. PT has other immediate family members with heart disease. General Exam Limitations: no limitations General appearance: alert, in no apparent distress Head exam: Present: atraumatic Eye exam: Present: normal appearance, PERRL, EOMI. Absent: nystagmus ENT exam: Present: normal oropharynx Neck exam: Present: normal inspection Respiratory exam: Present: normal lung sounds bilaterally Cardiovascular Exam: Present: regular rate, normal rhythm Expanded Peripheral pulses: 2+: Radial (R), Radial (L), Posterior Tibialis (R), Posterior Tibialis (L), Dorsalis Pedis (R), Dorsalis Pedis (L) GI/Abdominal exam: Present: soft. Absent: distended, tenderness, pulsatile mass Extremities exam: Present: normal inspection. Absent: pedal edema, calf tenderness Neurological exam: Present: alert, CN II-XII intact. Absent: motor sensory deficit Expanded Neurological exam: Present: protecting the airway Speech: Present: fluid speech Motor strength exam: RUE: 5, LUE: 5, RLE: 5, LLE: 5 Psychiatric exam: Present: normal affect, normal mood Skin exam: Present: normal color Course Vital Signs 09/29/18 09/29/18 09/29/18 10:46 11:14 12:00 Temperature 98 F Pulse Rate 64 56 L 63 Respiratory 18 16 18 Rate Blood Pressure 156/89 143/77 147/83 O2 Sat by Pulse 99 98 98 Oximetry 09/29/18 12:30 Temperature Pulse Rate 61 Respiratory 16 Rate Blood Pressure 122/69 O2 Sat by Pulse 96 Oximetry EKG Findings - EKG Comments: EKG Findings:: No sinus rhythm 60. MO 170. QRS 104. QT 444. QTC 444. Normal axis. Normal QRS. T wave inversion V1 through V4 with downward QRS. Medical Decision Making - Medical Decision Making Patient reevaluated and resting comfortably in bed, symptom free at this time. Patient updated on results and plan. Case was discussed with Dr. Mcdonough, who will admit covering for Dr. childers, who admits for Dr. Harkins. - Lab Data Result diagrams: 09/29/18 10:58 09/29/18 10:58 Lab Results 09/29/18 09/29/18 09/29/18 Range/Units 10:58 10:58 10:58 WBC 6.2 (3.8-10.6) k/uL RBC 5.21 (4.30-5.90) m/uL Hgb 15.2 (13.0-17.5) gm/dL Hct 45.3 (39.0-53.0) % MCV 87.0 (80.0-100.0) fL MCH 29.2 (25.0-35.0) pg MCHC 33.6 (31.0-37.0) g/dL RDW 14.0 (11.5-15.5) % Plt Count 206 (150-450) k/uL Neutrophils % (Manual) 60 % Lymphocytes % (Manual) 20 % Monocytes % (Manual) 13 % Eosinophils % (Manual) 7 % Neutrophils # (Manual) 3.72 (1.3-7.7) k/uL Lymphocytes # (Manual) 1.24 (1.0-4.8) k/uL Monocytes # (Manual) 0.81 (0-1.0) k/uL Eosinophils # (Manual) 0.43 (0-0.7) k/uL Nucleated RBCs 0 (0-0) /100 WBC Manual Slide Review Performed RBC Morphology Normal PT 9.9 (9.0-12.0) sec INR 0.9 (<1.2) APTT 24.8 (22.0-30.0) sec Sodium 138 (137-145) mmol/L Potassium 4.8 (3.5-5.1) mmol/L Chloride 103 (98-107) mmol/L Carbon Dioxide 24 (22-30) mmol/L Anion Gap 11 mmol/L BUN 20 (9-20) mg/dL Creatinine 1.19 (0.66-1.25) mg/dL Est GFR (CKD-EPI)AfAm 74 (>60 ml/min/1.73 sqM) Est GFR (CKD-EPI)NonAf 64 (>60 ml/min/1.73 sqM) Glucose 105 H (74-99) mg/dL Calcium 10.2 (8.4-10.2) mg/dL Magnesium 2.0 (1.6-2.3) mg/dL Total Bilirubin 0.9 (0.2-1.3) mg/dL AST 27 (17-59) U/L ALT 29 (21-72) U/L Alkaline Phosphatase 76 (38-126) U/L Troponin I (0.000-0.034) ng/mL Total Protein 7.7 (6.3-8.2) g/dL Albumin 4.7 (3.5-5.0) g/dL Urine Color Urine Appearance (Clear) Urine pH (5.0-8.0) Ur Specific [place] (1.001-1.035) Urine Protein (Negative) Urine Glucose (UA) (Negative) Urine Ketones (Negative) Urine Blood (Negative) Urine Nitrite (Negative) Urine Bilirubin (Negative) Urine Urobilinogen (<2.0) mg/dL Ur Leukocyte Esterase (Negative) 09/29/18 09/29/18 Range/Units 10:58 12:00 WBC (3.8-10.6) k/uL RBC (4.30-5.90) m/uL Hgb (13.0-17.5) gm/dL Hct (39.0-53.0) % MCV (80.0-100.0) fL MCH (25.0-35.0) pg MCHC (31.0-37.0) g/dL RDW (11.5-15.5) % Plt Count (150-450) k/uL Neutrophils % (Manual) % Lymphocytes % (Manual) % Monocytes % (Manual) % Eosinophils % (Manual) % Neutrophils # (Manual) (1.3-7.7) k/uL Lymphocytes # (Manual) (1.0-4.8) k/uL Monocytes # (Manual) (0-1.0) k/uL Eosinophils # (Manual) (0-0.7) k/uL Nucleated RBCs (0-0) /100 WBC Manual Slide Review RBC Morphology PT (9.0-12.0) sec INR (<1.2) APTT (22.0-30.0) sec Sodium (137-145) mmol/L Potassium (3.5-5.1) mmol/L Chloride (98-107) mmol/L Carbon Dioxide (22-30) mmol/L Anion Gap mmol/L BUN (9-20) mg/dL Creatinine (0.66-1.25) mg/dL Est GFR (CKD-EPI)AfAm (>60 ml/min/1.73 sqM) Est GFR (CKD-EPI)NonAf (>60 ml/min/1.73 sqM) Glucose (74-99) mg/dL Calcium (8.4-10.2) mg/dL Magnesium (1.6-2.3) mg/dL Total Bilirubin (0.2-1.3) mg/dL AST (17-59) U/L ALT (21-72) U/L Alkaline Phosphatase (38-126) U/L Troponin I <0.012 (0.000-0.034) ng/mL Total Protein (6.3-8.2) g/dL Albumin (3.5-5.0) g/dL Urine Color Light Yellow Urine Appearance Clear (Clear) Urine pH 5.0 (5.0-8.0) Ur Specific [place] 1.020 (1.001-1.035) Urine Protein Negative (Negative) Urine Glucose (UA) Negative (Negative) Urine Ketones Negative (Negative) Urine Blood Negative (Negative) Urine Nitrite Negative (Negative) Urine Bilirubin Negative (Negative) Urine Urobilinogen <2.0 (<2.0) mg/dL Ur Leukocyte Esterase Negative (Negative) - Radiology Data Radiology results: report reviewed (Computed tomography scan negative for pu lmonary embolism. There is mild prominence of the aorta) Disposition Clinical Impression: Near syncope, Chest pain Disposition: ADMITTED IP TO THIS HOSP Is patient prescribed a controlled substance at d/c from ED?: No Referrals: Raymundo Harkins MD [Primary Care Provider] - 1-2 days Decision Time: 13:07
[2018-09-29 11:34] LABS: INR 0.9 (<1.2); Partial Thromboplastin Time 24.8 sec (22.0-30.0); Prothrombin Time 9.9 sec (9.0-12.0)
[2018-09-29 11:36] LABS: Albumin 4.7 g/dL (3.5-5.0); Calcium 10.2 mg/dL (8.4-10.2); Potassium 4.8 mmol/L (3.5-5.1); Total Bilirubin 0.9 mg/dL (0.2-1.3); Total Protein 7.7 g/dL (6.3-8.2)
[2018-09-29 12:01] LABS: HCT 45.3 % (39.0-53.0); HGB 15.2 gm/dL (13.0-17.5); MCH 29.2 pg (25.0-35.0); MCHC 33.6 g/dL (31.0-37.0); Mean Platelet Volume 7.3; Platelet Count 206 k/uL (150-450); RBC 5.21 m/uL (4.30-5.90); WBC 6.2 k/uL (3.8-10.6)
--- NOTE | 2018-09-29 12:12 | CT ---
EXAMINATION TYPE: CT angio chest DATE OF EXAM: 09/29/2018 11:41 AM COMPARISON: Previous study dated 03/16/2018. HISTORY: Near syncope CT DLP: 387.3 mGycm Automated exposure control for dose reduction was used. CONTRAST: CTA scan of the thorax is performed with IV Contrast, patient injected with 70 mL of Isovue 370, pulm onary embolism protocol. . FINDINGS: Visualized portions of the lungs are clear. There is no significant axillary, mediastinal o r hilar adenopathy. There is no pleural or pericardial fluid. The heart is mildly enlarged. There is no evidence of pulmonary embolus. The aortic root is mildly prominent measuring 3.8 cm. The proximal arch is aneurysmal measuring 3.5 c m. Previously this was measured at 4.1 cm. The remainder the aorta is normal in caliber. Visualized portions of the upper abdomen are unremarkable. There is mild hypertrophic spondylosis within the spine. IMPRESSION: #1 THIS EXAMINATION IS NEGATIVE FOR PULMONARY EMBOLUS. 2. MILD PROMINENCE OF THE AORTIC ROOT.
[2018-09-29 12:18] LABS: Appearance,Urine Clear (Clear); Bilirubin,Urine Negative (Negative); Blood,Urine Negative (Negative); Color,Urine Light Yellow; Glucose,Urine (UA) Negative (Negative); Ketones,Urine Negative (Negative); Leukocyte Esterase,Urine Negative (Negative); Nitrite,Urine Negative (Negative); Protein,Urine Negative (Negative); Urobilinogen,Urine <2.0 mg/dL (<2.0)
[2018-09-29 12:32] LABS: Eosinophils # (M) 0.43 k/uL (0-0.7); Lymphocytes # (M) 1.24 k/uL (1.0-4.8); Monocytes # (M) 0.81 k/uL (0-1.0); Neutrophils # (M) 3.72 k/uL (1.3-7.7); Neutrophils % (M) 60 %; Nucleated Red Blood Cells 0 /100 WBC (0-0); Total Cells Counted 100
[2018-09-29] MEDS ORDERED: ASPIRIN 81 MG PO STA (13:07)
[2018-09-29] MEDS ORDERED: NITROGLYCERIN SL TABS 0.4 MG TAB SUBLINGUAL PRN (13:07)
[2018-09-29] MEDS ORDERED: TEMAZEPAM 15 MG CAP PO PRN (14:52)
[2018-09-29] MEDS ORDERED: ALPRAZolam 0.25 MG TAB PO PRN (14:52)
--- NOTE | 2018-09-29 18:58 | CT ---
EXAMINATION TYPE: CT brain wo con DATE OF EXAM: 09/29/2018 COMPARISON: 10/08/2009 HISTORY: near syncope, htn CT DLP: 1101.4 mGycm Automated exposure control for dose reduction was used. FINDINGS: Ventricles of normal size. There is no mass effect nor midline shift. There is no sign of intracrania l hemorrhage. There is minimal cortical atrophy. Calvarium is intact. There is mild symmetric thalami c calcification. IMPRESSION: NEGATIVE CT SCAN OF THE BRAIN. NO SIGNIFICANT CHANGE.
[2018-09-29] MEDS: HYDROcodone/APAP 5-325MG 1 EACH TAB PO PRN (19:51)
[2018-09-29] MEDS ORDERED: SOTALOL 80 MG TAB PO SCH (21:00)
[2018-09-29] MEDS ORDERED: METOPROLOL SUCCINATE (ER) 50 MG TAB.ER.24H PO SCH (21:00)
--- NOTE | 2018-09-29 21:34 | HP ---
HISTORY AND PHYSICAL DATE OF SERVICE: 09/29/2018 CHIEF COMPLAINT: Dizziness and presyncope. HISTORY OF PRESENT ILLNESS: This 63-year-old gentleman with a past medical history of multiple medical problems including history of atrial fibrillation, history of CAD, history of hyperlipidemia, history of myocardial infarction, pulmonary embolism being followed by Dr. Harkins in the outpatient setting, apparently was in synagogue and the patient felt dizzy and the patient felt some heart beating fast. The patient had a presyncopal episode. The patient was sitting and patient also had similar symptomatology and the EMS was called and the patient taken to [facility]. Blood pressure was high by the EMS. At home also the patient noted the blood pressure fluctuated widely from 102/57 to 170/95, heart rate had fluctuation also. The patient came to [facility] and admitted for further evaluation and treatment. A D-Dimer was not available but the patient underwent a CT angiogram. CT angio showed no evidence of pulmonary embolism. Mild prominence of aortic root was noted. There is no history of fever, rigors or chills. No history of headache, seizures at this time. PAST MEDICAL HISTORY: History of atrial ablation, CAD, CHF, hyperlipidemia; history of myocardial infarction, pulmonary embolus and syncope. MEDICATIONS: Prior to admission include home medications are: 1. Betapace 80 mg p.o. b.i.d. 2. Omeprazole 20 mg p.o. daily. 3. Toprol-XL 50 mg p.o. b.i.d. 4. Zestril 20 mg daily. 5. HydroDIURIL 25 mg. 6. Aspirin 320 mg. ALLERGIES: None. FAMILY HISTORY: History of myocardial infarction in the family. SOCIAL HISTORY: No history of smoking. No history alcohol intake. REVIEW OF SYSTEMS: ENT: No diminished vision. No diminished hearing. CARDIOVASCULAR: As mentioned earlier. RESPIRATION: As mentioned earlier. GI no nausea or vomiting. no dysuria. CENTRAL NERVOUS SYSTEM: As mentioned earlier. ALLERGY/IMMUNOLOGY: No asthma or hayfever. MUSCULOSKELETAL: As mentioned earlier. HEMATOLOGY/ONCOLOGY: No history of anemia. ENDOCRINE: No history of diabetes or hypothyroidism. CONSTITUTIONAL: As mentioned earlier. Dermatology: Negative. Rheumatology: Negative. Psychiatry: As mentioned earlier. PHYSICAL EXAMINATION: Alert and oriented x3. Pulse 64. Blood pressure 107/70. No orthostatic changes. Respirations 20, temperature 97.8, pulse ox 97% on room air. HEENT: Conjunctivae normal. NECK: Neck is no jugular venous distention. No carotid bruit. No lymph node enlargement. CARDIOVASCULAR: S1, S2 muffled. RESPIRATIONS: Breath sounds diminished in the bases. No rhonchi. No crackles. ABDOMEN: Soft, nontender. No mass palpable. LEGS no edema. No swelling. NERVOUS SYSTEM: Higher functions as mentioned earlier. Moves all four extremities. No focal deficits. SKIN: No ulcer, rash or bleeding. JOINTS: No active deforming arthropathy. LABS: Labs at this time shows CBC within normal limits. UA unremarkable. Troponin is negative. ASSESSMENT: 1. Presyncope for evaluation, rule out orthostatic hypotension. 2. Labile hypertension. 3. History of atrial fibrillation. 4. History of coronary artery disease. 5. Hyperlipidemia. 6. History of myocardial infarction. 7. History of pulmonary embolus. 8. History of syncope. 9. History of paroxysmal atrial fibrillation. 10.History of coronary artery disease, coronary artery bypass grafting, stent. RECOMMENDATIONS AND DISCUSSION: In this 63-year-old gentleman who presented with multiple complex medical issues, we will monitor the patient closely, continue the current medications, management and symptomatic treatment. Otherwise, at this time, I recommend resume the home medications. Monitor blood pressure closely. Cardiology consultation. I would also check orthostatic vitals and also obtain a baseline CT scan of the brain and as well as neuro checks also. We will follow the patient closely. The patient may be asked to follow up with Dr. Harkins closely after discharge. The prognosis guarded. Discussed with the patient who understands and agrees. MMODL / IJN: [id number] /
[2018-09-30 07:13] LABS: Calcium 9.9 mg/dL (8.4-10.2); Potassium 4.8 mmol/L (3.5-5.1)
[2018-09-30 07:21] LABS: MCH 29.4 pg (25.0-35.0); MCHC 33.2 g/dL (31.0-37.0); MCV 88.3 fL (80.0-100.0); Mean Platelet Volume 7.4; Platelet Count 176 k/uL (150-450); RBC 4.76 m/uL (4.30-5.90); RDW 14.4 % (11.5-15.5); WBC 5.2 k/uL (3.8-10.6)
[2018-09-30] MEDS ORDERED: PANTOPRAZOLE 40 MG TABLET PO SCH ×2 (07:30)
[2018-09-30 08:04] LABS: Basophils # (M) 0.05 k/uL (0-0.2); Eosinophils # (M) 0.36 k/uL (0-0.7); Lymphocytes # (M) 1.46 k/uL (1.0-4.8); Monocytes # (M) 0.68 k/uL (0-1.0); Neutrophils # (M) 2.65 k/uL (1.3-7.7); Neutrophils % (M) 51 %; Nucleated Red Blood Cells 0 /100 WBC (0-0); Total Cells Counted 100
[2018-09-30] MEDS ORDERED: CAFFEINE CITRATE 60 MG/3 ML VIAL IV PRN (08:12)
[2018-09-30] MEDS ORDERED: REGADENOSON 0.4 MG/5 ML SYRINGE IV ONE (08:12)
[2018-09-30] MEDS ORDERED: AMINOPHYLLINE 500 MG/20 ML VIAL IV PRN (08:12)
[2018-09-30] MEDS ORDERED: DIPYRIDAMOLE IV ONE (08:30)
[2018-09-30] MEDS ORDERED: SODIUM CHLORIDE 0.9% IV ONE (08:30)
[2018-09-30] MEDS ORDERED: FENOFIBRATE 160 MG TAB PO SCH (09:00)
[2018-09-30] MEDS ORDERED: ASPIRIN 81 MG PO SCH (09:00)
[2018-09-30] MEDS ORDERED: LISINOPRIL 20 MG TAB PO SCH (09:00)
[2018-09-30] MEDS ORDERED: HYDROCHLOROTHIAZIDE 25 MG TAB PO SCH (09:00)
[2018-09-30] MEDS ORDERED: METOPROLOL SUCCINATE (ER) 25 MG TAB.ER.24H PO SCH (09:00)
[2018-09-30] MEDS ORDERED: ASPIRIN 325 MG TAB PO SCH (09:00)
--- NOTE | 2018-09-30 10:56 | CONS ---
CONSULTATION This is a 63-year-old gentleman who sees a miller kiln dried salt at [facility] for his health care needs. Before that, he used to see Dr. Haley Vallejo. In 2009, he underwent aortocoronary bypass surgery and in 2011 had stents placed. The details are not available. He had a normal stress echo in 2016. As recently as December of 2017, according to the patient, he had a cardiac cath at the [facility], was told that his vessels were patent including bypass grafts. He comes in with complaints of very nondescript sensation of dizziness and lightheadedness. He was at the anabaptism when he got up and walked around about 10 feet, felt lightheaded, dizzy, did not quite pass out, was sweaty and then complained of mild chest pressure. After coming to the ER, he was hydrated. He feels better. Denies any chest pain or shortness of breath at this time. About 2 days prior, he felt very nauseated and did not have a comfortable day. He felt he had some flu-like symptoms at that time. After arrival, he had a further evaluation performed including a CT angiography of the chest which did not reveal any evidence for pulmonary embolism. He is resting comfortably without symptoms. Denies any chest pain. His troponins are normal. EKG revealed mild precordial T-wave inversion, which seems to be a nonspecific finding with which seems to be a nonspecific finding. He is resting comfortably without symptoms at the time of my evaluation. His cardiac cath according to the patient was less than a year ago. He is intolerant of statins and has not taken any statin medications and does not intend to. However, I advised him to try Crestor 5 mg every other day and he seems receptive to the idea. PAST MEDICAL HISTORY: 1. CAD with prior bypass surgery in 2009, PCI in 2011, a negative stress echo in 2015 and a normal cath per patient at [facility] in December 2017. 2. Hypertension. 3. Hyperlipidemia. 4. Patient has been having recurrent chest pain and was advised to have a stress test which he was is scheduled for 2 weeks ago, but he canceled for some conflict with spring. MEDICATIONS: At home include sotalol 80 mg b.i.d., Toprol-XL 50 mg b.i.d., Zestril 20 mg daily, HydroDIURIL 25 mg daily, aspirin 325 mg daily. ALLERGIES: None. REVIEW OF SYSTEMS: Unremarkable other than above-mentioned facts. PHYSICAL EXAMINATION: Blood pressure is 110/70, pulse rate is 60 per minute, regular. HEENT: Unremarkable. Fundus was not examined by me. Neck is supple. There is no JVD. I do not hear a carotid bruit. There is no thyromegaly. Heart exam reveals S1, S2 heard normally without any significant murmurs. Lungs revealed decent air entry. Abdomen is soft, nontender. Lower extremities reveal normal pulses. No edema. Central nervous system is grossly within normal limits. EKG revealed sinus mechanism with nonspecific ST and T-wave abnormality. LABORATORY DATA: Reveals that his troponin levels are all normal. IMPRESSION: 1. Near syncopal spell with some dehydration, which has improved. 2. Episode of atypical chest pain in a patient with known coronary artery disease. 3. History of prior aortocoronary bypass surgery. 4. History of prior PCI. 5. According to the patient, unremarkable cardiac cath in December 2017. 6. History of hypertension. 7. History of hyperlipidemia. RECOMMENDATIONS: I am recommending that we will continue hydration, perform an echocardiogram, a Lexiscan stress test and if these are normal, he can be discharged. I will discontinue sotalol for this patient and decrease the metoprolol succinate to 275 mg daily instead of b.i.d. I discussed my thoughts in detail with the patient. Thank you very much for the consult. SHAGUFTA / DIMITRIOSN: [id number] /
--- NOTE | 2018-09-30 13:26 | US ---
EXAMINATION TYPE: US carotid duplex BILAT DATE OF EXAM: 09/30/2018 COMPARISON: NONE CLINICAL HISTORY: chest pain. EXAM MEASUREMENTS: RIGHT: Peak Systolic Velocity (PSV) cm/sec ----- Right CCA: 92.5 ----- Right ICA: 87.7 ----- Right ECA: 87.0 ICA/CCA ratio: 0.9 RIGHT: End Diastole cm/sec ----- Right CCA: 24.7 ----- Right ICA: 30.7 ----- Right ECA: 13.1 LEFT: Peak Systolic Velocity (PSV) cm/sec ----- Left CCA: 81.7 ----- Left ICA: 65.7 ----- Left ECA: 80.7 ICA/CCA ratio: 0.8 LEFT: End Diastole cm/sec ----- Left CCA: 23.2 ----- Left ICA: 23.7 ----- Left ECA: 11.5 VERTEBRALS (direction of flow): Right Vertebral: Antegrade Left Vertebral: Antegrade Rhythm: Normal Mild atherosclerotic changes, no significant velocity elevations. IMPRESSION: Criteria for Assigning % of Stenosis / Diameter reduction (Estimation based on the indirect measurements of the internal carotid artery velocities (ICA PSV). 1. Normal (no stenosis)=ICA PSV < 125 cm/s: ratio < 2.0: ICA EDV<40 cm/s. 2. Less than 50% stenosis=ICA PSV < 125 cm/s: ratio < 2.0: ICA EDV<40 cm/s. 3. 50 to 69% stenosis=ICA PSV of 125 to 230 cm/s: ration 2.0 ? 4.0: ICA EDV 40-100 cm/s. 4. Greater than 70% stenosis to near occlusion= ICA PSV > 230 cm/s: ratio > 4.0: ICA EDV > 100 cm/s. 5. Near occlusion= ICA PSV velocities may be low or undetectable: variable ratio and ICA EDV. 6. Total occlusion=unable to detect flow.
[2018-09-30 13:47] VITALS: TEMP 97.9
--- NOTE | 2018-09-30 13:54 | NM ---
EXAMINATION TYPE: NM stress persantine cardiolit DATE OF EXAM: 09/30/2018 COMPARISON: NONE HISTORY: Chest pain TECHNIQUE: After the intravenous administration of 9.8 mCi Tc 99m Sestamibi - Cardiolite resting SPE CT images acquired 40 minutes post injection. The patient received 50.5 mg Persantine, 25.7 mCi Tc 99m Sestamibi - Stress images obtained 33 minute s post injection FINDINGS: Review of stress and rest SPECT images demonstrates no distinct perfusion abnormality. Gated analysi s shows normal wall motion with an estimated left ventricular ejection fraction of 64 %. IMPRESSION: No scintigraphic evidence for reversible ischemia.
[2018-09-30] MEDS: HYDROcodone/APAP 5-325MG 1 EACH TAB PO PRN (14:22)
[2018-09-30 15:24] VITALS: BP 126/72; RESP 18
[2018-09-30 15:44] VITALS: PULSE 63
--- NOTE | 2018-09-30 16:27 | P.DS ---
Providers Date of admission: 09/29/18 13:07 Attending physician: Daja Mcdonough Consults: 09/29/18 13:07 Consult Physician Urgent Consulting Provider: Lei Putnam Consult Reason/Comments: Near-syncope, chest discomfort Do you want consulting provider notified?: Yes Primary care physician: Raymundo Harkins [facility] Course: Diagnoses: Near-syncope Episodes of chest pain, resolved Bradycardia, medication is adjusted by binder operator. Dehydration, resolved History of coronary artery disease, status post bypass surgery in 2009 with normal cardiac cath at [facility] in December 2017 Hypertension Hyperlipidemia Hospital course This is a pleasant 63 years old male with past medical history of coronary artery disease, status post bypass surgery, hyperlipidemia, atrial fibrillation, myocardial infarction, pneumonia, syncope. The presents because of signs and symptoms of near syncope. Patient also was dehydrated on admission and he received parenteral hydration. Patient already feels better. He has chest pressure on admission which was resolved. No more syncope or dizziness. Patient has been evaluated by binder operator. Workup showed no significant stenosis on the carotid Dopplers on both sides. Stress test: No reversible ischemia. Negative CAT scan of the brain for acute event. Chest CTA: Negative for pulmonary embolism Patient has been evaluated and cleared by cardiology team for discharge Patient back to his baseline with no chest pain, no dyspnea. No change in urine or bowel habits. No nausea vomiting. No abdominal pain. Tolerating diet well. No fever. Problems and management plan was discussed with the patient and he verbalized understanding and acceptance Patient was found stable and can be discharged home however he needs follow-up as an outpatient. She was instructed to follow up with his PCP in one week and an appointment was made with his binder operator and [facility] on October 22 at 8 PM and patient agrees with it and says he will follow-up. Prescription for fenofibrate and metoprolol 75 mg daily as provided for the patient. Patient informed about the cardiology recommendation to stop his sotalol and he agrees Physical exam Gen: patient is a AAOx3, no distress CVS: S1-S2, RRR, no murmur Lungs: B/L CTA, no wheezing Abdomen: soft, no distention, no tenderness, positive bowel sounds Extremity: no leg edema or induration Time spent more than 35 minutes Plan - Discharge Summary Discharge Rx Participant: No New Discharge Prescriptions: New Fenofibrate [Lofibra] 160 mg PO DAILY #30 tab Nitroglycerin Sl Tabs [Nitrostat] 0.4 mg SUBLINGUAL Q5M PRN #30 tab PRN Reason: Chest Pain Metoprolol Succinate (ER) [Toprol XL] 75 mg PO DAILY #30 tab.er.24h Continue Aspirin 325 mg PO DAILY Lisinopril [Zestril] 20 mg PO DAILY Hydrochlorothiazide [Hydrodiuril] 25 mg PO DAILY Omeprazole 20 mg PO DAILY Discontinued Sotalol [Betapace] 80 mg PO BID Metoprolol Succinate (ER) [Toprol XL] 50 mg PO BID Discharge Medication List Aspirin 325 mg PO DAILY 07/07/17 [History] Hydrochlorothiazide [Hydrodiuril] 25 mg PO DAILY 09/29/18 [History] Lisinopril [Zestril] 20 mg PO DAILY 09/29/18 [History] Omeprazole 20 mg PO DAILY 09/29/18 [History] Fenofibrate [Lofibra] 160 mg PO DAILY #30 tab 09/30/18 [Rx] Metoprolol Succinate (ER) [Toprol XL] 75 mg PO DAILY #30 tab.er.24h 09/30/18 [Rx] Nitroglycerin Sl Tabs [Nitrostat] 0.4 mg SUBLINGUAL Q5M PRN #30 tab 09/30/18 [Rx] Follow up Appointment(s)/Referral(s): Raymundo Harkins MD [Primary Care Provider] - 1-2 days (October 09 at 3:45pm) Patient Instructions/Handouts: Regadenoson (By injection), Chest Pain (DC), Cardiac Stress Test (DC) Activity/Diet/Wound Care/Special Instructions: [facility] binder operator Dr. Graham- to see Dr. Alejandra on October 22 at 8:00am Cardiac diet Activity is limited till you see your doctor Discharge Disposition: HOME SELF-CARE
--- NOTE | 2018-10-01 07:18 | ECHOF ---
Referral Reason:Near syncope, chest discomfort MEASUREMENTS -------- HEIGHT: 170.2 cm WEIGHT: 89.8 kg BP: RVIDd: 3.6 cm (< 3.3) IVSd: 1.3 cm (0.6 - 1.1) LVIDd: 4.4 cm (3.9 - 5.3) LVPWd: 1.2 cm (0.6 - 1.1) IVSs: 1.5 cm LVIDs: 3.5 cm LVPWs: 1.0 cm LA Diam: 4.0 cm (2.7 - 3.8) Ao Diam: 3.3 cm (2.0 - 3.7) AV Cusp: 1.4 cm (1.5 - 2.6) LA Diam: 4.0 cm (2.7 - 3.8) MV EXCURSION: 20.824 mm (> 18.000) MV EF SLOPE: 83 mm/s (70 - 150) EPSS: 0.3 cm MV E James: 0.62 m/s MV DecT: 157 ms MV A James: 0.54 m/s MV E/A Ratio: 1.15 RAP: 5.00 mmHg RVSP: 14.10 mmHg FINDINGS -------- Sinus rhythm. This was a techncally difficult study with suboptimal views, , Lumason utilized for enhancement of im ages. The left ventricular size is normal. There is mild concentric left ventricular hypertrophy. Overa ll left ventricular systolic function is mildly impaired with, an EF between 45 - 50 %. Septal wall motion is delayed and consistent with prior cardiac surgery. Anterseptal Hypokinesis The right ventricle is mild to moderately enlarged. The left atrial size is normal. The right atrial size is normal. 5.0mg OF Lumason UTLIZED: 2 OR MORE WALL SEGMENTS NOT VISUALIZED. There is mild aortic valve sclerosis. There is no evidence of aortic regurgitation. Mild mitral annular calcification present. Mild mitral regurgitation is present. Mild tricuspid regurgitation present. There is no evidence of pulmonary hypertension. The right v entricular systolic pressure, as measured by Doppler, is 14.10mmHg. There is no pulmonic regurgitation present. The aortic root size is normal. There is no pericardial effusion. CONCLUSIONS -------- 1. This was a techncally difficult study with suboptimal views, , Lumason utilized for enhancement of images. 2. The left ventricular size is normal. 3. There is mild concentric left ventricular hypertrophy. 4. Overall left ventricular systolic function is mildly impaired with, an EF between 45 - 50 %. 5. Septal wall motion is delayed and consistent with prior cardiac surgery. 6. Anterseptal Hypokinesis 7. The right ventricle is mild to moderately enlarged. 8. The left atrial size is normal. 9. The right atrial size is normal. 10. 5.0mg OF Lumason UTLIZED: 2 OR MORE WALL SEGMENTS NOT VISUALIZED. 11. There is mild aortic valve sclerosis. 12. Mild mitral annular calcification present. 13. Mild mitral regurgitation is present. 14. Mild tricuspid regurgitation present. 15. There is no evidence of pulmonary hypertension. 16. The right ventricular systolic pressure, as measured by Doppler, is 14.10mmHg. 17. There is no pulmonic regurgitation present. 18. The aortic root size is normal. 19. There is no pericardial effusion. DYE MAKER: Elena Dougherty RDCS
--- NOTE | 2018-10-01 07:27 | EST ---
EXERCISE STRESS AGE: 63 SEX: M HT: 5'7" WT: 195 PROTOCOL: Persantine Cardiolite Study HEART RATE REST: 57 BLOOD PRESSURE REST: 151/46 MAXIMUM HEART RATE ACHIEVED: 73 MAXIMUM BLOOD PRESSURE: 116/74 85% MPHR: 133 100% MPHR: 156 INDICATIONS: Chest pain, near syncope. CLINICAL INFORMATION: Baseline EKG revealed a normal sinus rhythm with minor right ventricular conduction delay, poor R-wave progression with nonspecific ST abnormality in leads V1 to V4. With Persantine administration, patient had transient chest discomfort and heart rate changed from 57 to 73 beats per minute, blood pressure changed from 151/46 to 116/74. EKG remained inconclusive with precordial nonspecific ST changes. By EKG criteria, this is an inconclusive Lexiscan stress test because of minor resting EKG changes. The nuclear scan results which are more pertinent, will be reported by the radiologist. SHAGUFTA / FRANCIA: [id number] /
== END 2018-09-30 17:07 | disposition home or self-care (01) ==
LOC: EC 10:40 → 1SOBS 13:07
PROVIDERS: ADMIT Hospitalist; ATTEND Hospitalist
DX: R55 Syncope and collapse (principal); R07.89 Other chest pain; R42 Dizziness and giddiness; I25.10 Atherosclerotic heart disease of native coronary artery without angina pectoris; I50.9 Heart failure, unspecified; E78.5 Hyperlipidemia, unspecified; I11.0 Hypertensive heart disease with heart failure; R00.1 Bradycardia, unspecified; I48.0 Paroxysmal atrial fibrillation; E86.0 Dehydration; Z86.711 Personal history of pulmonary embolism; Z95.1 Presence of aortocoronary bypass graft; Z95.5 Presence of coronary angioplasty implant and graft; Z79.82 Long term (current) use of aspirin; Z79.899 Other long term (current) drug therapy; I25.2 Old myocardial infarction; Z82.49 Family history of ischemic heart disease and other diseases of the circulatory system
CPT/HCPCS: 96360; 99285; 36415; 93005; 93017; 80061; 80053; 80048; 83735; 84484; 85025 ×2; 85610; 85730; 81003; 93880; 70450; 71275; 78452; G0378 ×2; C8929; A9500; Q9950; Q9967; 93306

== ENCOUNTER 2018-12-02 17:16 | Emergency (ER) | payer OTHER ==
[2018-12-02 17:20] VITALS: BP 186/87; RESP 18; TEMP 98.5
[2018-12-02 17:44] VITALS: PULSE 70
--- NOTE | 2018-12-02 17:56 | ED ---
Chest Pain HPI - General Chief Complaint: Chest Pain Stated Complaint: chest tightness Time Seen by Provider: 12/02/18 17:25 Source: patient, RN notes reviewed, old records reviewed Mode of arrival: wheelchair Limitations: no limitations - History of Present Illness Initial Comments: This is a 63-year-old male the ER for evaluation. Patient has history of CAD, coming with chest pain today left-sided chest pain on similar to prior episodes of CAD. He also has history of CABG. Patient has no recent travel history no sick contacts no cough congestion or fever. No diaphoresis no shortness of breath MD Complaint: chest pain -: hour(s) Onset: during rest Pain Location: substernal, left chest Pain Radiation: none Severity: mild Severity scale (1-10): 1 Quality: heaviness Consistency: now resolved Improves With: nothing Worsens With: nothing Anginal Symptoms: other (None) Other Symptoms: other (None) Treatments Prior to Arrival: none - Related Data Home Medications Medication Instructions Recorded Confirmed Aspirin 325 mg PO DAILY 07/07/17 12/02/18 Hydrochlorothiazide [Hydrodiuril] 25 mg PO DAILY 09/29/18 12/02/18 Omeprazole 20 mg PO DAILY 09/29/18 12/02/18 Metoprolol Succinate (ER) [Toprol 50 mg PO BID 12/02/18 12/02/18 Xl] Sotalol [Betapace] 80 mg PO BID 12/02/18 12/02/18 Previous Rx's Medication Instructions Recorded Nitroglycerin Sl Tabs [Nitrostat] 0.4 mg SUBLINGUAL Q5M PRN #30 tab 09/30/18 Allergies Allergy/AdvReac Type Severity Reaction Status Date / Time No Known Allergies Allergy Verified 12/02/18 17:34 Review of Systems ROS Statement: Those systems with pertinent positive or pertinent negative responses have been documented in the HPI. ROS Other: All systems not noted in ROS Statement are negative. EKG Findings - EKG Comments: EKG Findings:: G shows sinus rhythm rate of 61, TN 180, QRS 90, QTc 438 Past Medical History Past Medical History: Atrial Fibrillation, Coronary Artery Disease (CAD), Chest Pain / Angina, Hyperlipidemia, Myocardial Infarction (IA), Pneumonia, Pulmonary Embolus (PE), Syncope Additional Past Medical History / Comment(s): [place] on Lipitor Prophyllactic. Afib paraxysmal; IA in 2009 and 2011; Mild Heart Valve Prob. Blood Clot Removed Between Heart and 5th and 6th Ribs. RECENT SYNCOPAL EPISODE 12/29/15. Aortic Aneurysm Last Myocardial Infarction Date:: 2011 History of Any Multi-Drug Resistant Organisms: None Reported Past Surgical History: Coronary Bypass/CABG, Heart Catheterization With Stent Additional Past Surgical History / Comment(s): 08/2009 CABG with 7 vessel bypass; C.Cath w/ Stents X2. Past Anesthesia/Blood Transfusion Reactions: No Reported Reaction Additional Past Anesthesia/Blood Transfusion Reaction / Comment(s): Pt received blood with CABG without reaction. Date of Last Stent Placement:: 02/13/12 Past Psychological History: No Psychological Hx Reported Smoking Status: Never smoker Past Alcohol Use History: None Reported Past Drug Use History: None Reported - Past Family History Father Family Medical History: Myocardial Infarction (IA) Additional Family Medical History / Comment(s): Father at the age of 58 yrs from a IA. Mother Family Medical History: Coronary Artery Disease (CAD) Additional Family Medical History / Comment(s): Mother at age 80 yrs. Brother(s) Family Medical History: Myocardial Infarction (IA) Additional Family Medical History / Comment(s): One brother at the age of 31 yrs from a IA. PT has other immediate family members with heart disease. General Exam Limitations: no limitations General appearance: alert, in no apparent distress Head exam: Present: atraumatic, normocephalic, normal inspection Eye exam: Present: normal appearance, PERRL, EOMI. Absent: scleral icterus, conjunctival injection, periorbital swelling ENT exam: Present: normal exam, mucous membranes moist Neck exam: Present: normal inspection. Absent: tenderness, meningismus, lymphadenopathy Respiratory exam: Present: normal lung sounds bilaterally. Absent: respiratory distress, wheezes, rales, rhonchi, stridor Cardiovascular Exam: Present: regular rate, normal rhythm, normal heart sounds. Absent: systolic murmur, diastolic murmur, rubs, gallop, clicks GI/Abdominal exam: Present: soft, normal bowel sounds. Absent: distended, tenderness, guarding, rebound, rigid Extremities exam: Present: normal inspection, full ROM, normal capillary refill. Absent: tenderness, pedal edema, joint swelling, calf tenderness Back exam: Present: normal inspection Neurological exam: Present: alert, oriented X3, CN II-XII intact Psychiatric exam: Present: normal affect, normal mood Skin exam: Present: warm, dry, intact, normal color. Absent: rash Course Vital Signs 12/02/18 12/02/18 17:18 17:42 Temperature 98.5 F Pulse Rate 68 Pulse Rate [ 70 Director Equipment ] Respiratory 18 Rate Blood Pressure 186/87 O2 Sat by Pulse 97 Oximetry - Reevaluation(s) Reevaluation #1: Medical record is reviewed Spoke with patient at length regarding need for blood work and need for further testing, patient states he has no chest pain is now being in the hospital, as well as stay in hospital, no longer be in the hospital here Patient requesting discharge home Chest Pain MDM - MDM 63 male the ER with chest pain history of CAD. Patient after getting normal EKG refusing to stay for blood testing refusing to stay overnight as his flaker tender testing this hospital. Patient will be discharged home with his own request Disposition Clinical Impression: Chest pain Disposition: HOME SELF-CARE Condition: Good Instructions (If sedation given, give patient instructions): Chest Pain (ED) Is patient prescribed a controlled substance at d/c from ED?: No Referrals: Raymundo Harkins MD [Primary Care Provider] - 1-2 days
== END 2018-12-02 19:15 | disposition home or self-care (01) ==
LOC: EC 17:16
DX: I25.119 Atherosclerotic heart disease of native coronary artery with unspecified angina pectoris (principal); E78.5 Hyperlipidemia, unspecified; I48.0 Paroxysmal atrial fibrillation; I25.2 Old myocardial infarction; Z79.82 Long term (current) use of aspirin; Z79.899 Other long term (current) drug therapy; Z95.1 Presence of aortocoronary bypass graft; Z95.5 Presence of coronary angioplasty implant and graft; Z82.49 Family history of ischemic heart disease and other diseases of the circulatory system; Z53.20 Procedure and treatment not carried out because of patient's decision for unspecified reasons
CPT/HCPCS: 93005; 99285

== ENCOUNTER 2019-06-15 17:58 | Emergency (ER) | payer MEDICARE, OTHER ==
--- NOTE | 2019-06-15 18:45 | ED ---
General Adult HPI - General Chief complaint: Arrhythmia/Palpitations Stated complaint: Palpitations Time Seen by Provider: 06/15/19 18:18 Source: patient, RN notes reviewed, old records reviewed Mode of arrival: ambulatory Limitations: no limitations - History of Present Illness Initial comments: 64-year-old male patient presents to ED chief complaint of heart fluttering. Patient reports that he had a chill for ablation ariza with a few than each of fibrillation throughout the day. Denies any chest pain. Does report that he had some exertional dyspnea while going to get the mail and while cooking. Patient reports that this is his third visit to the hospital in the last 5 days for these symptoms. He reports that he was then [facility] when he was initially seen for palpitations. Patient reports that he had a syncopal episode in [place] the next day. At the time patient had extensive workup including CT brain, CT pulmonary angiography, chest x-ray. All which was relatively benign. He reports he was admitted to the hospital where they placed a loop recorder. Patient's fire apparatus engineer is Dr. Graham out of [facility]. Patient does have a history of pulmonary embolism most recently in March of last year. Patient reports that this does not feel similar to that at all, reports that when he had pulmonary embolism past he had severe chest pain. Patient took aspirin prior to arrival at Hospital. Denies any other complaints. Systemic: Pt denies fatigue, fever/chills, rash. Pt denies weakness, night sweats, weight loss. Neuro: Pt denies headache, visual disturbances, syncope or pre-syncope. HEENT: Pt denies ocular discharge or irritation, otalgia, rhinorrhea, pharyngitis or notable lymphadenopathy. Cardiopulmonary: Pt denies chest pain, SOB. Abdominal/GI: Pt denies abdominal pain, n/v/d. : Pt denies dysuria, burning w/ urination, frequency/urgency. Denies new onset urinary or bowel incontinence. MSK: Pt denies myalgia, loss of strength or function in extremities. Neuro: Pt denies new onset weakness, paresthesias. - Related Data Home Medications Medication Instructions Recorded Confirmed Aspirin 325 mg PO DAILY 07/07/17 12/02/18 Hydrochlorothiazide [Hydrodiuril] 25 mg PO DAILY 09/29/18 12/02/18 Omeprazole 20 mg PO DAILY 09/29/18 12/02/18 Metoprolol Succinate (ER) [Toprol 50 mg PO BID 12/02/18 12/02/18 Xl] Sotalol [Betapace] 80 mg PO BID 12/02/18 12/02/18 Previous Rx's Medication Instructions Recorded Nitroglycerin Sl Tabs [Nitrostat] 0.4 mg SUBLINGUAL Q5M PRN #30 tab 09/30/18 Allergies Allergy/AdvReac Type Severity Reaction Status Date / Time No Known Allergies Allergy Verified 12/02/18 17:34 Review of Systems ROS Statement: Those systems with pertinent positive or pertinent negative responses have been documented in the HPI. ROS Other: All systems not noted in ROS Statement are negative. Past Medical History Past Medical History: Atrial Fibrillation, Coronary Artery Disease (CAD), Chest Pain / Angina, Hyperlipidemia, Myocardial Infarction ([place]), Pneumonia, Pulmonary Embolus (PE), Syncope Additional Past Medical History / Comment(s): [place] on Lipitor Prophyllactic. Afib paraxysmal; [place] in 2009 and 2011; Mild Heart Valve Prob. Blood Clot Removed Between Heart and 5th and 6th Ribs. Aortic Aneurysm Last Myocardial Infarction Date:: 2011 History of Any Multi-Drug Resistant Organisms: None Reported Past Surgical History: Coronary Bypass/CABG, Heart Catheterization With Stent Additional Past Surgical History / Comment(s): 08/2009 CABG with 7 vessel bypass; C.Cath w/ Stents X2. Past Anesthesia/Blood Transfusion Reactions: No Reported Reaction Additional Past Anesthesia/Blood Transfusion Reaction / Comment(s): Pt received blood with CABG without reaction. Date of Last Stent Placement:: 02/13/12 Past Psychological History: No Psychological Hx Reported Smoking Status: Never smoker Past Alcohol Use History: None Reported Past Drug Use History: None Reported - Past Family History Father Family Medical History: Myocardial Infarction ([place]) Additional Family Medical History / Comment(s): Father at the age of 58 yrs from a [place]. Mother Family Medical History: Coronary Artery Disease (CAD) Additional Family Medical History / Comment(s): Mother at age 80 yrs. Brother(s) Family Medical History: Myocardial Infarction ([place]) Additional Family Medical History / Comment(s): One brother at the age of 31 yrs from a [place]. PT has other immediate family members with heart disease. General Exam - General Exam Comments Initial Comments: Constitutional: NAD, AOX3, Pt has pleasant affect. HEENT: NC/AT, trachea midline, neck supple, no lymphadenopathy. Posterior pharynx non erythematous, without exudates. External ears appear normal, without discharge. Mucous membranes moist. Eyes PERRLA, EOM intact. There is no scleral icterus. No pallor noted. Cardiopulmonary: RRR, no murmurs, rubs or gallops, no JVD noted. Lungs CTAB in anterior and posterior ariza. No peripheral edema. Abdominal exam: Abdomen soft and non-distended. Abdomen non-tender to palpation in all 4 quadrants. Bowel sounds active in LLQ. No hepatosplenomegaly. No ecchymosis Neuro: CN II-XII grossly intact. No nuchal rigidity. No raccon eyes, no isabel sign, no hemotympanum. No cervical spinal tenderness. MSK: No posterior calf tenderness bilaterally, homans sign negative bilaterally. Posterior tibialis and radial pulse +2 bilaterally. Sensation intact in upper and lower extremities. Full active ROM in upper and lower extremities, 5/5 stregnth. Limitations: no limitations Course Vital Signs 06/15/19 06/15/19 06/15/19 18:01 18:03 18:21 Temperature 98 F Pulse Rate 64 Respiratory 18 18 16 Rate Blood Pressure 160/80 O2 Sat by Pulse 97 97 Oximetry 06/15/19 06/15/19 06/15/19 18:30 19:00 19:03 Temperature Pulse Rate 63 61 Respiratory 16 18 18 Rate Blood Pressure 133/84 133/84 O2 Sat by Pulse 98 97 Oximetry 06/15/19 06/15/19 19:30 20:00 Temperature 98.2 F Pulse Rate 57 L 56 L Respiratory 16 18 Rate Blood Pressure 138/88 117/69 O2 Sat by Pulse 96 Oximetry Medical Decision Making - Medical Decision Making 64-year-old male patient presents to ED chief complaint of heart fluttering. Patient reports that he has had sensation of heart fluttering throughout the day. Denies any chest pain. Does report that he had some exertional dyspnea while going to get the mail and while cooking. Patient reports that this is his third visit to the hospital in the last 2 weeks days for these symptoms. He reports that he was then [facility] when he was initially seen for palpit ations. Patient reports that he had a syncopal episode in [place] the next day. At the time patient had extensive workup including CT brain, CT pulmonary angiography, chest x-ray. All which was relatively benign. He reports he was admitted to the hospital where they placed a loop recorder. Patient's fire apparatus engineer is Dr. Graham out of [facility]. Patient does have a history of pulmonary embolism most recently in March of last year. Patient reports that this does not feel similar to that at all, reports that when he had pulmonary embolism past he had severe chest pain. Patient took aspirin prior to arrival at Hospital. Denies any other complaints. Patient will signs stable, afebrile. Physical exam didn't display acute pathology. Laboratory investigations revealed negative troponin, negative BNP. EKG nonischemic. BNP 229. Chest x-ray is negative. Patient was recommended admission to hospital. Patient declined. Reports that he is asymptomatic reports this is best she has felt in days. Denies any chest pain and sob. States that he'll follow-up with fire apparatus engineer. Return to ER if condition worsens. - Lab Data Result diagrams: 06/15/19 19:34 06/15/19 19:34 Lab Results 06/15/19 06/15/19 06/15/19 Range/Units 19:34 19:34 19:34 WBC 6.0 (3.8-10.6) k/uL RBC 4.74 (4.30-5.90) m/uL Hgb 14.4 (13.0-17.5) gm/dL Hct 42.0 (39.0-53.0) % MCV 88.4 (80.0-100.0) fL MCH 30.4 (25.0-35.0) pg MCHC 34.3 (31.0-37.0) g/dL RDW 13.0 (11.5-15.5) % Plt Count 180 (150-450) k/uL Neutrophils % (Manual) 58 % Lymphocytes % (Manual) 27 % Monocytes % (Manual) 10 % Eosinophils % (Manual) 3 % Basophils % (Manual) 2 % Neutrophils # (Manual) 3.48 (1.3-7.7) k/uL Lymphocytes # (Manual) 1.62 (1.0-4.8) k/uL Monocytes # (Manual) 0.60 (0-1.0) k/uL Eosinophils # (Manual) 0.18 (0-0.7) k/uL Basophils # (Manual) 0.12 (0-0.2) k/uL Nucleated RBCs 0 (0-0) /100 WBC Manual Slide Review Performed PT 9.7 (9.0-12.0) sec INR 0.9 (<1.2) APTT 25.7 (22.0-30.0) sec Sodium 141 (137-145) mmol/L Potassium 4.4 (3.5-5.1) mmol/L Chloride 106 (98-107) mmol/L Carbon Dioxide 26 (22-30) mmol/L Anion Gap 9 mmol/L BUN 14 (9-20) mg/dL Creatinine 1.07 (0.66-1.25) mg/dL Est GFR (CKD-EPI)AfAm 85 (>60 ml/min/1.73 sqM) Est GFR (CKD-EPI)NonAf 73 (>60 ml/min/1.73 sqM) Glucose 100 H (74-99) mg/dL Calcium 9.7 (8.4-10.2) mg/dL Magnesium 2.2 (1.6-2.3) mg/dL Total Bilirubin 0.5 (0.2-1.3) mg/dL AST 26 (17-59) U/L ALT 16 (4-49) U/L Alkaline Phosphatase 75 (38-126) U/L Troponin I (0.000-0.034) ng/mL NT-Pro-B Natriuret Pep pg/mL Total Protein 7.3 (6.3-8.2) g/dL Albumin 4.4 (3.5-5.0) g/dL 06/15/19 06/15/19 Range/Units 19:34 19:34 WBC (3.8-10.6) k/uL RBC (4.30-5.90) m/uL Hgb (13.0-17.5) gm/dL Hct (39.0-53.0) % MCV (80.0-100.0) fL MCH (25.0-35.0) pg MCHC (31.0-37.0) g/dL RDW (11.5-15.5) % Plt Count (150-450) k/uL Neutrophils % (Manual) % Lymphocytes % (Manual) % Monocytes % (Manual) % Eosinophils % (Manual) % Basophils % (Manual) % Neutrophils # (Manual) (1.3-7.7) k/uL Lymphocytes # (Manual) (1.0-4.8) k/uL Monocytes # (Manual) (0-1.0) k/uL Eosinophils # (Manual) (0-0.7) k/uL Basophils # (Manual) (0-0.2) k/uL Nucleated RBCs (0-0) /100 WBC Manual Slide Review PT (9.0-12.0) sec INR (<1.2) APTT (22.0-30.0) sec Sodium (137-145) mmol/L Potassium (3.5-5.1) mmol/L Chloride (98-107) mmol/L Carbon Dioxide (22-30) mmol/L Anion Gap mmol/L BUN (9-20) mg/dL Creatinine (0.66-1.25) mg/dL Est GFR (CKD-EPI)AfAm (>60 ml/min/1.73 sqM) Est GFR (CKD-EPI)NonAf (>60 ml/min/1.73 sqM) Glucose (74-99) mg/dL Calcium (8.4-10.2) mg/dL Magnesium (1.6-2.3) mg/dL Total Bilirubin (0.2-1.3) mg/dL AST (17-59) U/L ALT (4-49) U/L Alkaline Phosphatase (38-126) U/L Troponin I <0.012 (0.000-0.034) ng/mL NT-Pro-B Natriuret Pep 229 pg/mL Total Protein (6.3-8.2) g/dL Albumin (3.5-5.0) g/dL - EKG Data -: EKG Interpreted by Me EKG Comments: Ventricular rate 63, presents to 182, QRS 90, QT/QTc 440 since 450. Normal s inus rhythm, nonspecific T wave abnormality. Abnormal EKG. No concern for acute ischemia at this time. Disposition Clinical Impression: Heart palpitations Disposition: HOME SELF-CARE Condition: Stable Instructions (If sedation given, give patient instructions): Heart Palpitations (ED) Additional Instructions: Follow-up with fire apparatus engineer tomorrow. Follow up with PCP tomorrow. Return to ER if condition worsens in anyway. Is patient prescribed a controlled substance at d/c from ED?: No Referrals: Raymundo Harkins MD [Primary Care Provider] - 1-2 days
[2019-06-15] MEDS ORDERED: ASPIRIN 81 MG PO STA (18:47)
[2019-06-15 19:48] LABS: HGB 14.4 gm/dL (13.0-17.5); MCH 30.4 pg (25.0-35.0); MCHC 34.3 g/dL (31.0-37.0); MCV 88.4 fL (80.0-100.0); Mean Platelet Volume 7.5; Platelet Count 180 k/uL (150-450); RBC 4.74 m/uL (4.30-5.90)
--- NOTE | 2019-06-15 19:56 | XR ---
EXAMINATION TYPE: XR chest 2V DATE OF EXAM: 06/15/2019 COMPARISON: 03/16/2018 HISTORY: Chest pain TECHNIQUE: 2 There is no heart failure nor confluent pneumonic infiltrate. Costophrenic angles are clear. There ar e sternal wires. IMPRESSION: No active cardiopulmonary disease. No change.
[2019-06-15 20:01] LABS: INR 0.9 (<1.2); Partial Thromboplastin Time 25.7 sec (22.0-30.0); Prothrombin Time 9.7 sec (9.0-12.0)
[2019-06-15 20:04] LABS: Albumin 4.4 g/dL (3.5-5.0); Calcium 9.7 mg/dL (8.4-10.2); Magnesium 2.2 mg/dL (1.6-2.3); Potassium 4.4 mmol/L (3.5-5.1); Total Bilirubin 0.5 mg/dL (0.2-1.3); Total Protein 7.3 g/dL (6.3-8.2)
[2019-06-15 20:21] LABS: Basophils # (M) 0.12 k/uL (0-0.2); Eosinophils # (M) 0.18 k/uL (0-0.7); Lymphocytes # (M) 1.62 k/uL (1.0-4.8); Neutrophils # (M) 3.48 k/uL (1.3-7.7); Neutrophils % (M) 58 %; Nucleated Red Blood Cells 0 /100 WBC (0-0); Total Cells Counted 100
[2019-06-15 20:35] VITALS: RESP 18
[2019-06-15 21:54] VITALS: BP 114/72; PULSE 80; TEMP 98
== END 2019-06-15 21:54 | disposition home or self-care (01) ==
LOC: EC 17:58
DX: R00.2 Palpitations (principal); R06.09 Other forms of dyspnea; R55 Syncope and collapse; I48.0 Paroxysmal atrial fibrillation; I25.119 Atherosclerotic heart disease of native coronary artery with unspecified angina pectoris; I25.2 Old myocardial infarction; Z79.82 Long term (current) use of aspirin; Z79.899 Other long term (current) drug therapy; Z86.711 Personal history of pulmonary embolism; Z95.1 Presence of aortocoronary bypass graft; Z95.5 Presence of coronary angioplasty implant and graft
CPT/HCPCS: 36415; 71046; 80053; 83735; 83880; 84484; 85025; 85610; 85730; 93005; 99285

== ENCOUNTER → 2021-03-09 | Outpatient (CLI) | payer MEDICARE, OTHER ==
[2021-03-09 14:22] LABS: African American GFR (CKD) >90 (>60 ml/min/1.73 sqM); Blood Urea Nitrogen 16 mg/dL (9-20); Non-African American GFR(CKD) 86 (>60 ml/min/1.73 sqM)
--- NOTE | 2021-03-09 15:11 | CT ---
EXAMINATION TYPE: CT lumbar spine wo/w con DATE OF EXAM: 03/09/2021 COMPARISON: None. HISTORY: Radicular pain and radiculopathy per order. Back pain into left leg and bilateral thighs for patient. CT DLP: 1683 mGycm Automated exposure control for dose reduction was used. CONTRAST: CT scan of the lumbar is performed without and with IV Contrast, patient injected with 100 mL of Isov ue 300. Enhanced CT of the lumbar spine was performed. Bone and soft tissue window settings are submitted as well as coronal and sagittal reconstructions. Slightly hypoplastic right T12 rib. There are 5 lumbar type vertebra given this assumption. There is severe disc space narrowing with endplate sclerosis and moderate to severe spurring at L4-L5 level. T here is moderate to severe disc space narrowing with vacuum disc phenomenon at L4-L5 level. Vertebral body heights are maintained. Mild multilevel anterior and lateral spurring is noted. Axial images at T12-L1, L1-L2, and L2-L3 levels appear within normal limits. Axial images at L3-L4 level show mild facet degenerative changes and ligamentum flavum hypertrophy mi ldly effacing posterolateral thecal sac. There is mild broad disc bulge mildly effacing the anterior thecal sac. There is mild bilateral anterior inferior neural foraminal narrowing. Axial images at the L4-L5 level show prominent left paracentral spurring effacing anterior thecal sac and [id number] facet arthropathy bilaterally. More moderate to severe left greater than right bilateral neural foraminal narrowing at this level is present. Axial images at the L5-S1 levels with posterior spur disc complex with spinal canal is fairly well ma intained. There is more prominent left foraminal component axial image 58 causing moderate left-sided narrowing. Right-sided neural foramen is patent. Moderate plaque in the infrarenal abdominal aorta extends into iliac branch vessels. Paraspinal muscl e bulk is maintained. IMPRESSION: Multilevel degenerative changes mid to lower lumbar spine as detailed above. More promine nt lower lumbar spine left-sided neural foraminal narrowing noted.
== END | disposition home or self-care (01) ==
LOC: RADCTMAIN 13:21
PROVIDERS: ATTEND Physical Medicine & Rehabilitation
DX: M51.16 Intervertebral disc disorders with radiculopathy, lumbar region (principal); M47.26 Other spondylosis with radiculopathy, lumbar region; M99.73 Connective tissue and disc stenosis of intervertebral foramina of lumbar region
CPT/HCPCS: 82565; 84520; 72133; 36415; Q9967

== ENCOUNTER 2024-06-01 22:26 | Observation (INO) | payer MEDICARE, OTHER ==
--- NOTE | 2024-06-01 22:55 | XR ---
EXAMINATION TYPE: XR chest 2V DATE OF EXAM: 06/01/2024 CLINICAL HISTORY: Difficulty in breathing. TECHNIQUE: Frontal and lateral views of the chest are obtained. COMPARISON: Prior chest x-ray June 15, 2019 FINDINGS: Overlying Sternal wires and mediastinal clips are redemonstrated. Persisting cardiomegaly. New right basilar airspace opacity on 2 views. No pleural effusion or pneumothorax seen bilaterally. The osseous structures are intact. IMPRESSION: Cardiomegaly with new right lower lobe acute infiltrate and/or atelectasis. [facility], , 06/01/2024 10:52 PM
--- NOTE | 2024-06-01 22:56 | ED ---
SOB HPI - General Chief Complaint: Shortness of Breath Stated Complaint: SOB Time Seen by Provider: 06/01/24 22:35 Source: patient Mode of arrival: wheelchair Limitations: no limitations - History of Present Illness Initial Comments: 69-year-old male with past medical history of paroxysmal atrial fibrillation, coronary artery disease who presents emergency department reporting shortness of breath and heart palpitations. States that it has been going on the past couple of days but his heart was racing faster than normal this evening. He does have a history of paroxysmal A-fib. Takes sotalol and metoprolol. Has been taking the medications as directed without any missed doses. He has had a previous ablation for his A-fib. This was completed at [facility] 2 years ago. Patient states he was supposed to have a another ablation however it is not scheduled until November 2024. Patient also takes Eliquis for anticoagulation. He denies any missed doses of this. He denies any chest pain. Does have history of coronary disease. He denies fevers. Does admit to a cough with productive sputum. No lower extremity swelling. No other alleviating, precipitating or modifying factors - Related Data Home Medications Medication Instructions Recorded Confirmed Aspirin 325 mg PO DAILY 07/07/17 12/02/18 Omeprazole 20 mg PO DAILY 09/29/18 12/02/18 hydroCHLOROthiazide [Hydrodiuril] 25 mg PO DAILY 09/29/18 12/02/18 Metoprolol Succinate (ER) [Toprol 50 mg PO BID 12/02/18 12/02/18 Xl] Sotalol [Betapace] 80 mg PO BID 12/02/18 12/02/18 Previous Rx's Medication Instructions Recorded Nitroglycerin Sl Tabs [Nitrostat] 0.4 mg SUBLINGUAL Q5M PRN #30 tab 09/30/18 Allergies Allergy/AdvReac Type Severity Reaction Status Date / Time No Known Allergies Allergy Verified 06/01/24 22:34 Review of Systems ROS Statement: Those systems with pertinent positive or pertinent negative responses have been documented in the HPI. ROS Other: All systems not noted in ROS Statement are negative. Past Medical History Past Medical History: Atrial Fibrillation, Coronary Artery Disease (CAD), Chest Pain / Angina, Hyperlipidemia, Myocardial Infarction (ID), Pneumonia, Pulmonary Embolus (PE), Syncope Additional Past Medical History / Comment(s): STATES on Lipitor Prophyllactic. Afib paraxysmal; ID in 2009 and 2011; Mild Heart Valve Prob. Blood Clot Removed Between Heart and 5th and 6th Ribs. Aortic Aneurysm Last Myocardial Infarction Date:: 2011 History of Any Multi-Drug Resistant Organisms: None Reported Past Surgical History: Coronary Bypass/CABG, Heart Catheterization With Stent Additional Past Surgical History / Comment(s): 08/2009 CABG with 7 vessel bypass; C.Cath w/ Stents X2. Past Anesthesia/Blood Transfusion Reactions: No Reported Reaction Additional Past Anesthesia/Blood Transfusion Reaction / Comment(s): Pt received blood with CABG without reaction. Date of Last Stent Placement:: 02/13/12 Past Psychological History: No Psychological Hx Reported Smoking Status: Former smoker Past Alcohol Use History: None Reported Past Drug Use History: None Reported - Past Family History Father Family Medical History: Myocardial Infarction (ID) Additional Family Medical History / Comment(s): Father at the age of 58 yrs from a ID. Mother Family Medical History: Coronary Artery Disease (CAD) Additional Family Medical History / Comment(s): Mother at age 80 yrs. Brother(s) Family Medical History: Myocardial Infarction (ID) Additional Family Medical History / Comment(s): One brother at the age of 31 yrs from a ID. PT has other immediate family members with heart disease. General Exam Limitations: no limitations General appearance: alert, in no apparent distress Head exam: Present: atraumatic, normocephalic, normal inspection Eye exam: Present: normal appearance, PERRL, EOMI. Absent: scleral icterus, conjunctival injection, periorbital swelling ENT exam: Present: normal exam, mucous membranes moist Neck exam: Present: normal inspection. Absent: tenderness, meningismus, lymphadenopathy Respiratory exam: Present: normal lung sounds bilaterally. Absent: respiratory distress, wheezes, rales, rhonchi, stridor Cardiovascular Exam: Present: tachycardia, irregular rhythm, normal heart sounds. Absent: systolic murmur, diastolic murmur, rubs, gallop, clicks GI/Abdominal exam: Present: soft, normal bowel sounds. Absent: distended, tenderness, guarding, rebound, rigid Extremities exam: Present: normal inspection, full ROM, normal capillary refill. Absent: tenderness, pedal edema, joint swelling, calf tenderness Back exam: Present: normal inspection Neurological exam: Present: alert, oriented X3, CN II-XII intact Psychiatric exam: Present: normal affect, normal mood Skin exam: Present: warm, dry, intact, normal color. Absent: rash Course Vital Signs 06/01/24 22:31 Temperature 97.6 F Pulse Rate 118 H Respiratory 22 Rate Blood Pressure 161/73 O2 Sat by Pulse 97 Oximetry Medical Decision Making - Medical Decision Making Was pt. sent in by a medical professional or institution (, [facility], EQUIPMENT MAINTENANCE TECHNICIAN, urgent c are, hospital, or fci...) When possible be specific @ -No Did you speak to anyone other than the patient for history (EMS, parent, family, police, friend...)? What history was obtained from this source @ -No Did you review nursing and triage notes (agree or disagree)? Why? @ -I reviewed and agree with nursing and triage notes Were old charts reviewed (outside hosp., previous admission, EMS record, old EKG, old radiological studies, urgent care reports/EKG's, fci records)? Report findings @ -No old charts were reviewed Differential Diagnosis (chest pain, altered mental status, abdominal pain women, abdominal pain men, vaginal bleeding, weakness, fever, dyspnea, syncope, headache, dizziness, GI bleed, back pain, seizure, CVA, palpatations, mental health, musculoskeletal)? @Differential Palpitations Ventricular arrhythmias, atrial arrhythmias, myocardial infarction, anemia, thyrotoxicosis, electrolyte imbalance, hypokalemia, pulmonary embolism, pulmonary disease, drugs, alcohol, anxiety, stress.... This is not meant to be an all-inclusive list. EKG interpreted by me (3pts min.). @ -Yes and demonstrates A-fib with a rate of 116. QRS 93. QTc of 425. No ac [place] ST segment elevations or depressions X-rays interpreted by me (1pt min.). @ -Yes and demonstrates possible pneumonia CT interpreted by me (1pt min.). @ -None done U/S interpreted by me (1pt. min.). @ -None done What testing was considered but not performed or refused? (CT, X-rays, U/S, labs)? Why? @ -None What meds were considered but not given or refused? Why? @ -None Did you discuss the management of the patient with other professionals (professionals i.e. , PA, EQUIPMENT MAINTENANCE TECHNICIAN, lab, RT, psych nurse, social worker clinical, gift packer, teacher, chief media officer, case consultant)? Give summary @ -Spoke with Pat from [facility] for the admission Was smoking cessation discussed for >3mins.? @ -No Was critical care preformed (if so, how long)? @ -No Were there social determinants of health that impacted care today? How? (Homelessness, low income, unemployed, alcoholism, drug addiction, transportation, low edu. Level, literacy, decrease access to med. care, intermediate, rehab)? @ -No Was there de-escalation of care discussed even if they declined (Discuss DNR or withdrawal of care, Hospice)? DNR status @ -No What co-morbidities impacted this encounter? (DM, HTN, Smoking, COPD, CAD, Cancer, CVA, ARF, Chemo, Hep., AIDS, mental health diagnosis, sleep apnea, morbid obesity)? @ -A-fib with RVR Was patient admitted / discharged? Hospital course, mention meds given and route, prescriptions, significant lab abnormalities, going to OR and other pertinent info. @ -Upon arrival patient seen and evaluated in bed 18. Thorough history and physical exam was performed. Twelve-lead EKG is obtained. Laboratory studies are conducted. Chest x-ray was performed. Patient was given 5 mg of metoprolol. Patient does have improved heart rate however remains in A-fib. He was initiated on antibiotics due to the possible developing pneumonia with productive sputum. Patient will be admitted for cardiology consult. Spoke with Pat from [facility] for admission Undiagnosed new problem with uncertain prognosis? @ -No Drug Therapy requiring intensive monitoring for toxicity (Heparin, Nitro, Insulin, Cardizem)? @ -No Were any procedures done? @ -No Diagnosis/symptom? @ -Acute dyspnea, A-fib with RVR, possible developing pneumonia Acute, or Chronic, or Acute on Chronic? @ -Acute Uncomplicated (without systemic symptoms) or Complicated (systemic symptoms)? @ -Complicated Side effects of treatment? @ -No Exacerbation, Progression, or Severe Exacerbation? @ -No Poses a threat to life or bodily function? How? (Chest pain, USA, ID, pneumonia, PE, COPD, DKA, ARF, appy, cholecystitis, CVA, Diverticulitis, Homicidal, Suicidal, threat to staff... and all critical care pts) @ -No - Lab Data Result diagrams: 06/01/24 23:21 06/01/24 23:21 Lab Results 06/01/24 06/01/24 06/01/24 Range/Units 23:21 23:21 23:21 WBC 6.3 (3.8-10.6) k/uL RBC 4.72 (4.30-5.90) m/uL Hgb 14.8 (13.0-17.5) gm/dL Hct 41.8 (39.0-53.0) % MCV 88.6 (80.0-100.0) fL MCH 31.3 (25.0-35.0) pg MCHC 35.3 (31.0-37.0) g/dL RDW 12.6 (11.5-15.5) % Plt Count 127 L (150-450) k/uL MPV 8.3 Neutrophils % (Manual) 56 % Lymphocytes % (Manual) 32 % Monocytes % (Manual) 12 % Neutrophils # (Manual) 3.53 (1.3-7.7) k/uL Lymphocytes # (Manual) 2.02 (1.0-4.8) k/uL Monocytes # (Manual) 0.76 (0-1.0) k/uL Nucleated RBCs 0 (0-0) /100 WBC Manual Slide Review Performed RBC Morphology Normal PT 11.4 (10.0-12.5) sec INR 1.0 (<1.2) APTT 24.8 (22.0-30.0) sec Sodium 133 L (137-145) mmol/L Potassium 4.3 (3.5-5.1) mmol/L Chloride 103 (98-107) mmol/L Carbon Dioxide 21 L (22-30) mmol/L Anion Gap 9 mmol/L BUN 12 (9-20) mg/dL Creatinine 0.83 (0.66-1.25) mg/dL Est GFR (CKD-EPI)AfAm >90 (>60 ml/min/1.73 sqM) Est GFR (CKD-EPI)NonAf 89 (>60 ml/min/1.73 sqM) Glucose 127 H (74-99) mg/dL Plasma Lactic Acid Eloy (0.7-2.0) mmol/L Calcium 9.3 (8.4-10.2) mg/dL Total Bilirubin 1.1 (0.2-1.3) mg/dL AST 180 H (17-59) U/L ALT 146 H (4-49) U/L Alkaline Phosphatase 84 (38-126) U/L Troponin I (0.000-0.034) ng/mL NT-Pro-B Natriuret Pep 1930 pg/mL Total Protein 7.1 (6.3-8.2) g/dL Albumin 4.1 (3.5-5.0) g/dL TSH (0.465-4.680) mIU/L Free T4 (0.78-2.19) ng/dL 06/01/24 06/01/24 06/01/24 Range/Units 23:21 23:21 23:21 WBC (3.8-10.6) k/uL RBC (4.30-5.90) m/uL Hgb (13.0-17.5) gm/dL Hct (39.0-53.0) % MCV (80.0-100.0) fL MCH (25.0-35.0) pg MCHC (31.0-37.0) g/dL RDW (11.5-15.5) % Plt Count (150-450) k/uL MPV Neutrophils % (Manual) % Lymphocytes % (Manual) % Monocytes % (Manual) % Neutrophils # (Manual) (1.3-7.7) k/uL Lymphocytes # (Manual) (1.0-4.8) k/uL Monocytes # (Manual) (0-1.0) k/uL Nucleated RBCs (0-0) /100 WBC Manual Slide Review RBC Morphology PT (10.0-12.5) sec INR (<1.2) APTT (22.0-30.0) sec Sodium (137-145) mmol/L Potassium (3.5-5.1) mmol/L Chloride (98-107) mmol/L Carbon Dioxide (22-30) mmol/L Anion Gap mmol/L BUN (9-20) mg/dL Creatinine (0.66-1.25) mg/dL Est GFR (CKD-EPI)AfAm (>60 ml/min/1.73 sqM) Est GFR (CKD-EPI)NonAf (>60 ml/min/1.73 sqM) Glucose (74-99) mg/dL Plasma Lactic Acid Eloy 1.0 (0.7-2.0) mmol/L Calcium (8.4-10.2) mg/dL Total Bilirubin (0.2-1.3) mg/dL AST (17-59) U/L ALT (4-49) U/L Alkaline Phosphatase (38-126) U/L Troponin I 0.014 (0.000-0.034) ng/mL NT-Pro-B Natriuret Pep pg/mL Total Protein (6.3-8.2) g/dL Albumin (3.5-5.0) g/dL TSH 5.700 H (0.465-4.680) mIU/L Free T4 1.14 (0.78-2.19) ng/dL Disposition Clinical Impression: Atrial fibrillation with RVR, Pneumonia Disposition: ADMITTED IP TO THIS HOSP Condition: Stable Is patient prescribed a controlled substance at d/c from ED?: No Time of Disposition: 01:37 Decision to Admit Reason: Admit from EC Decision Date: 06/02/24 Decision Time: 01:37
[2024-06-01 23:45] LABS: ALT 146 U/L (4-49); African American GFR (CKD) >90 (>60 ml/min/1.73 sqM); Albumin 4.1 g/dL (3.5-5.0); Anion Gap 9 mmol/L; Blood Urea Nitrogen 12 mg/dL (9-20); Calcium 9.3 mg/dL (8.4-10.2); Carbon Dioxide 21 mmol/L (22-30); Chloride 103 mmol/L (98-107); Glucose 127 mg/dL (74-99); Non-African American GFR(CKD) 89 (>60 ml/min/1.73 sqM); Sodium 133 mmol/L (137-145); Total Bilirubin 1.1 mg/dL (0.2-1.3); Total Protein 7.1 g/dL (6.3-8.2)
[2024-06-01] MEDS: METOPROLOL TARTRATE 5 MG/5 ML VIAL IVP STA (23:49)
[2024-06-01 23:51] LABS: Potassium 4.3 mmol/L (3.5-5.1)
[2024-06-01 23:52] LABS: AST 180 U/L (17-59); Alkaline Phosphatase 84 U/L (38-126)
[2024-06-01 23:53] LABS: NT-Pro-B-Type Natriuretic Pept 1930 pg/mL
[2024-06-02] LABS: Partial Thromboplastin Time 24.8 sec (22.0-30.0); Prothrombin Time 11.4 sec (10.0-12.5)
[2024-06-02 00:05] LABS: HCT 41.8 % (39.0-53.0); HGB 14.8 gm/dL (13.0-17.5); MCH 31.3 pg (25.0-35.0); MCHC 35.3 g/dL (31.0-37.0); MCV 88.6 fL (80.0-100.0); Mean Platelet Volume 8.3; Platelet Count 127 k/uL (150-450); RBC 4.72 m/uL (4.30-5.90); RDW 12.6 % (11.5-15.5); WBC 6.3 k/uL (3.8-10.6)
[2024-06-02 00:31] LABS: Lymphocytes # (M) 2.02 k/uL (1.0-4.8); Monocytes # (M) 0.76 k/uL (0-1.0); Neutrophils # (M) 3.53 k/uL (1.3-7.7); Neutrophils % (M) 56 %; Nucleated Red Blood Cells 0 /100 WBC (0-0); RBC Morphology Normal; Total Cells Counted 100
[2024-06-02 01:27] LABS: T4, Free (Free Thyroxine) 1.14 ng/dL (0.78-2.19)
[2024-06-02] MEDS ORDERED: NALOXONE 0.4 MG/ML 1 ML VIAL IV PRN (01:42)
[2024-06-02] MEDS ORDERED: ACETAMINOPHEN TAB 325 MG TAB PO PRN (01:42)
[2024-06-02] MEDS ORDERED: METOPROLOL TARTRATE 5 MG/5 ML VIAL IVP PRN (01:51)
[2024-06-02] MEDS: cefTRIAXone IN SWFI 1,000 MG/10 ML SYRINGE IVP STA (01:55)
[2024-06-02] MEDS: AZITHROMYCIN 500 MG in SODIUM CHLORIDE 0.9% 250 ML IVPB STA (01:56)
[2024-06-02] MEDS: METOPROLOL SUCCINATE (ER) 50 MG TAB.ER.24H PO SCH (08:20)
[2024-06-02] MEDS: SOTALOL 80 MG TAB PO SCH (08:20)
[2024-06-02] MEDS ORDERED: NITROGLYCERIN SL TABS 0.4 MG TAB SUBLINGUAL PRN (09:09)
[2024-06-02] MEDS: APIXABAN 5 MG TAB PO SCH (09:20)
[2024-06-02] MEDS: CLOPIDOGREL 75 MG TAB PO SCH (09:21)
[2024-06-02 11:41] VITALS: RESP 16
--- NOTE | 2024-06-02 12:13 | P.DS ---
Providers Date of admission: 06/02/24 01:43 Attending physician: Daja Mcdonough Consults: 06/02/24 01:42 Consult Physician Urgent Consulting Provider: [facility] Consult Reason/Comments: afib with rvr Do you want consulting provider notified?: Yes Primary care physician: Stated None Hospital Course: 69-year-old pleasant male with a history of paroxysmal atrial fibrillation came in with complaints of palpitations found to be in atrial fibrillation with rapid unclear rate and was given a dose of IV metoprolol subsequently converted to sinus rhythm. Patient does not have any symptoms at this time patient does have extensive cardiac history including coronary disease continue heart failure EF of around 45 to 50% presently not in heart failure exacerbation although patient serum sodium is mildly low at 135 patient liver enzymes are also slightly elevated with normal bilirubin. Patient denied any abdominal pain at this time. Patient was admitted by cardiology and cleared by cardiology to be discharged. Patient had a chest x-ray which showed infiltrate in the right lower lung ariza although present patient does not have any fever chills does not have any leukocytosis patient does not have any significant cough with sputum production patient appears to have atelectasis. Patient was given a dose of antibiotics here. REVIEW OF SYSTEMS: All other systems are negative except those mentioned in the HPI PHYSICAL EXAMINATION: GENERAL: The patient is alert and oriented x3, not in any acute distress. Well developed, well nourished. HEENT: Pupils are round and equally reacting to light. EOMI. No scleral icterus. No conjunctival pallor. Normocephalic, atraumatic. No pharyngeal erythema. No thyromegaly. CARDIOVASCULAR: S1 and S2 present. No murmurs, rubs, or gallops. PULMONARY: Chest is clear to auscultation, no wheezing or crackles. ABDOMEN: Soft, nontender, nondistended, normoactive bowel sounds. No palpable organomegaly. MUSCULOSKELETAL: No joint swelling or deformity. EXTREMITIES: No cyanosis, clubbing, or pedal edema. NEUROLOGICAL: Gross neurological examination did not reveal any focal deficits. SKIN: No rashes. Assessment and plan Atrial fibrillation with rapid unclear rate: Patient has paroxysmal atrial fibrillation patient is sinus rhythm at this time will be discharged today. Patient is on Eliquis and metoprolol as well as sotalol which will be continued -Right lower lobe atelectasis my suspicion for pneumonia is low clinically will obtain a procalcitonin level if that is negative patient will not require any antibiotics patient will need an incentive spirometer. -Coronary artery disease with multiple stents in the past -Patient heart failure chronic systolic function without any acute exacerbation patient is not on any diuretics for about 5 years Hyperlipidemia -History of PE in the past Patient will be discharged today before discharge will obtain a comprehensive metabolic profile to make sure his liver enzymes are not going up and patient can follow-up for this as an outpatient patient will need outpatient liver function testing will also obtain a procalcitonin level. Patient Condition at Discharge: Stable Plan - Discharge Summary New Discharge Prescriptions: Continue Nitroglycerin Sl Tabs [Nitrostat] 0.4 mg SUBLINGUAL Q5M PRN #30 tab PRN Reason: Chest Pain Sotalol [Betapace] 80 mg PO BID Metoprolol Succinate (ER) [Toprol XL] 50 mg PO HS Metoprolol Succinate (ER) [Toprol XL] 100 mg PO DAILY Omeprazole [PriLOSEC] 40 mg PO DAILY Apixaban [Eliquis] 5 mg PO BID Rosuvastatin Calcium [Crestor] 40 mg PO HS Isosorbide Mononitrate ER [Imdur] 60 mg PO HS Clopidogrel [Plavix] 75 mg PO DAILY Discharge Medication List Nitroglycerin Sl Tabs [Nitrostat] 0.4 mg SUBLINGUAL Q5M PRN #30 tab 09/30/18 [Rx] Metoprolol Succinate (ER) [Toprol XL] 50 mg PO HS 12/02/18 [History] Sotalol [Betapace] 80 mg PO BID 12/02/18 [History] Apixaban [Eliquis] 5 mg PO BID 06/02/24 [History] Clopidogrel [Plavix] 75 mg PO DAILY 06/02/24 [History] Isosorbide Mononitrate ER [Imdur] 60 mg PO HS 06/02/24 [History] Metoprolol Succinate (ER) [Toprol XL] 100 mg PO DAILY 06/02/24 [History] Omeprazole [PriLOSEC] 40 mg PO DAILY 06/02/24 [History] Rosuvastatin Calcium [Crestor] 40 mg PO HS 06/02/24 [History] Follow up Appointment(s)/Referral(s): None,Stated [Primary Care Provider] - 1-2 days
--- NOTE | 2024-06-02 12:13 | P.HPIM ---
History of Present Illness 69-year-old pleasant male with a history of paroxysmal atrial fibrillation came in with complaints of palpitations found to be in atrial fibrillation with rapid unclear rate and was given a dose of IV metoprolol subsequently converted to sinus rhythm. Patient does not have any symptoms at this time patient does have extensive cardiac history including coronary disease continue heart failure EF of around 45 to 50% presently not in heart failure exacerbation although patient serum sodium is mildly low at 135 patient liver enzymes are also slightly elevated with normal bilirubin. Patient denied any abdominal pain at this time. Patient was admitted by cardiology and cleared by cardiology to be discharged. Patient had a chest x-ray which showed infiltrate in the right lower lung ariza although present patient does not have any fever chills does not have any leukocytosis patient does not have any significant cough with sputum production patient appears to have atelectasis. Patient was given a dose of antibiotics here. REVIEW OF SYSTEMS: All other systems are negative except those mentioned in the HPI PHYSICAL EXAMINATION: GENERAL: The patient is alert and oriented x3, not in any acute distress. Well developed, well nourished. HEENT: Pupils are round and equally reacting to light. EOMI. No scleral icterus. No conjunctival pallor. Normocephalic, atraumatic. No pharyngeal erythema. No thyromegaly. CARDIOVASCULAR: S1 and S2 present. No murmurs, rubs, or gallops. PULMONARY: Chest is clear to auscultation, no wheezing or crackles. ABDOMEN: Soft, nontender, nondistended, normoactive bowel sounds. No palpable organomegaly. MUSCULOSKELETAL: No joint swelling or deformity. EXTREMITIES: No cyanosis, clubbing, or pedal edema. NEUROLOGICAL: Gross neurological examination did not reveal any focal deficits. SKIN: No rashes. Assessment and plan Atrial fibrillation with rapid unclear rate: Patient has paroxysmal atrial fibrillation patient is sinus rhythm at this time will be discharged today. Patient is on Eliquis and metoprolol as well as sotalol which will be continued -Right lower lobe atelectasis my suspicion for pneumonia is low clinically will obtain a procalcitonin level if that is negative patient will not require any antibiotics patient will need an incentive spirometer. -Coronary artery disease with multiple stents in the past -Patient heart failure chronic systolic function without any acute exacerbation patient is not on any diuretics for about 5 years Hyperlipidemia -History of PE in the past Patient will be discharged today before discharge will obtain a comprehensive metabolic profile to make sure his liver enzymes are not going up and patient can follow-up for this as an outpatient patient will need outpatient liver function testing will also obtain a procalcitonin level. Past Medical History Past Medical History: Atrial Fibrillation, Coronary Artery Disease (CAD), Chest Pain / Angina, Hyperlipidemia, Myocardial Infarction (MA), Pneumonia, Pulmonary Embolus (PE), Syncope Additional Past Medical History / Comment(s): STATES on Lipitor Prophyllactic. Afib paraxysmal; MA in 2009 and 2011; Mild Heart Valve Prob. Blood Clot Removed Between Heart and 5th and 6th Ribs. Aortic Aneurysm Last Myocardial Infarction Date:: 2011 History of Any Multi-Drug Resistant Organisms: None Reported Past Surgical History: Coronary Bypass/CABG, Heart Catheterization With Stent Additional Past Surgical History / Comment(s): 08/2009 CABG with 7 vessel bypass; C.Cath w/ Stents X2. Past Anesthesia/Blood Transfusion Reactions: No Reported Reaction Additional Past Anesthesia/Blood Transfusion Reaction / Comment(s): Pt received blood with CABG without reaction. Date of Last Stent Placement:: 02/13/12 Past Psychological History: No Psychological Hx Reported Smoking Status: Former smoker Past Alcohol Use History: None Reported Past Drug Use History: None Reported - Past Family History Father Family Medical History: Myocardial Infarction (MA) Additional Family Medical History / Comment(s): Father at the age of 58 yrs from a MA. Mother Family Medical History: Coronary Artery Disease (CAD) Additional Family Medical History / Comment(s): Mother at age 80 yrs. Brother(s) Family Medical History: Myocardial Infarction (MA) Additional Family Medical History / Comment(s): One brother at the age of 31 yrs from a MA. PT has other immediate family members with heart disease. Medications and Allergies Home Medications Medication Instructions Recorded Confirmed Type Nitroglycerin Sl Tabs [Nitrostat] 0.4 mg SUBLINGUAL Q5M PRN #30 tab 09/30/18 06/02/24 Rx Metoprolol Succinate (ER) [Toprol 50 mg PO HS 12/02/18 06/02/24 History XL] Sotalol [Betapace] 80 mg PO BID 12/02/18 06/02/24 History Apixaban [Eliquis] 5 mg PO BID 06/02/24 06/02/24 History Clopidogrel [Plavix] 75 mg PO DAILY 06/02/24 06/02/24 History Isosorbide Mononitrate ER [Imdur] 60 mg PO HS 06/02/24 06/02/24 History Metoprolol Succinate (ER) [Toprol 100 mg PO DAILY 06/02/24 06/02/24 History XL] Omeprazole [PriLOSEC] 40 mg PO DAILY 06/02/24 06/02/24 History Rosuvastatin Calcium [Crestor] 40 mg PO HS 06/02/24 06/02/24 History Allergies Allergy/AdvReac Type Severity Reaction Status Date / Time lisinopril Allergy Swelling/Ra Verified 06/02/24 07:55 sh Physical Exam Vitals: Vital Signs Temp Pulse Resp BP Pulse Ox 06/02/24 11:39 67 16 129/75 95 06/02/24 07:37 66 18 127/76 93 L 06/02/24 06:00 70 17 110/60 93 L 06/02/24 02:04 101 H 17 131/83 98 06/01/24 22:31 97.6 F 118 H 22 161/73 97 Intake and Output 06/01/24 06/02/24 06/02/24 22:59 06:59 14:59 Other: Weight 86.183 kg Results CBC & Chem 7: 06/01/24 23:21 06/01/24 23:21 Labs: Abnormal Lab Results - Last 24 Hours (Table) 06/01/24 06/01/24 06/01/24 Range/Units 23:21 23:21 23:21 Plt Count 127 L (150-450) k/uL Sodium 133 L (137-145) mmol/L Carbon Dioxide 21 L (22-30) mmol/L Glucose 127 H (74-99) mg/dL AST 180 H (17-59) U/L ALT 146 H (4-49) U/L TSH 5.700 H (0.465-4.680) mIU/L
[2024-06-02 13:54] LABS: ALT 197 U/L (4-49); AST 204 U/L (17-59); African American GFR (CKD) >90 (>60 ml/min/1.73 sqM); Albumin 4.3 g/dL (3.5-5.0); Albumin/Globulin Ratio 1.4; Alkaline Phosphatase 109 U/L (38-126); Anion Gap 11 mmol/L; Blood Urea Nitrogen 12 mg/dL (9-20); Calcium 9.4 mg/dL (8.4-10.2); Carbon Dioxide 28 mmol/L (22-30); Chloride 99 mmol/L (98-107); Glucose 106 mg/dL (74-99); Non-African American GFR(CKD) 82 (>60 ml/min/1.73 sqM); Potassium 4.2 mmol/L (3.5-5.1); Sodium 138 mmol/L (137-145); Total Bilirubin 0.9 mg/dL (0.2-1.3); Total Protein 7.3 g/dL (6.3-8.2)
--- NOTE | 2024-06-02 14:52 | P.CRDCN ---
History of Present Illness Consult date: 06/02/24 Reason for Consult (text): A-fib with RVR History of present illness: This is a 69-year-old male patient of Dr. Kai Coburn with past medical history of hypertension, paroxysmal atrial fibrillation, coronary artery disease status post CABG in 2009. We have been asked to evaluate the patient for atrial fibrillation with RVR. Patient states that he could feel palpitations and was dizzy and lightheaded. He states he has undergone 1 ablation done about 2-1/2 years ago and is scheduled for second 1 coming up soon. Patient denies having any chest pain. Patient has since converted to sinus rhythm and he can feel the difference. Blood pressure 127/76, heart rate 66, pulse ox 93% on room air. Patient is seen today in the emergency center waiting for a bed on the cardiac stepdown unit. Patient is status post 1 dose of IV Lopressor 5 mg. -EKG: Atrial fibrillation on 116 bpm -Chest x-ray: Cardiomegaly with right lower lobe acute infiltrate and/or atelectasis. -Laboratory studies: WBC 6.3, hemoglobin 14.8, platelet count 127. Electrolytes and renal function are normal. Troponin negative x 3. proBNP 1930. TSH 5.7 with normal free T4 of 1.14. -Home cardiac medications: Eliquis 5 mg twice daily, Plavix 75 mg daily, Imdur 60 mg daily, Toprol-XL 100 mg in the morning and 50 mg in the evening, Nitrostat, Crestor 40 mg at bedtime, sotalol 80 mg twice daily. -Persantine stress test in 2019 revealed no evidence of reversible ischemia. -Echocardiogram performed 2019 revealed EF of 45 to 50%, mild aortic valve sclerosis, mild mitral digitation, mild tricuspid regurgitation. Review Of Systems: At the time of my exam: CONSTITUTIONAL: Denies fever or chills. HEENT: Denies blurred vision, vision changes, or eye pain. Denies hemoptysis CARDIOVASCULAR: Denies chest pain. Denies orthopnea. Denies PND. Denies palpitations RESPIRATORY: Denies shortness of breath. GASTROINTESTINAL: Denies abdominal pain. Denies nausea or vomiting. HEMATOLOGIC: Denies bleeding disorders. GENITOURINARY: Denies any blood in urine. SKIN: Denies puritis. Denies rash. Physical examination: Gen: This is a 69-year-old male in no acute distress VS: reviewed HEENT: Head is atraumatic, normocephalic. Pupils equal, round. Sclerae is anicteric. NECK: Supple. No JVD. LUNGS: Clear to auscultation. No wheezes or rhonchi. No intercostal retractions. HEART: Regular rate and rhythm. No murmur. ABDOMEN: Soft No tenderness. EXTREMITIES: No pedal edema. No calf tenderness. NEUROLOGICAL: Patient is awake, alert and oriented x3. Assessment: Paroxysmal atrial fibrillation converted to sinus rhythm Hypertension Coronary artery disease status post CABG in 2009 Plan: Resume patient's home cardiac medications Continue telemetry monitoring and if patient remains in sinus rhythm, discharge home tomorrow Further recommendations to follow based upon clinical course Thank you kindly for this consultation. Nurse practitioner note has been reviewed, I agree with documented findings and plan of care. Patient was seen and examined. Past Medical History Past Medical History: Atrial Fibrillation, Coronary Artery Disease (CAD), Chest Pain / Angina, Hyperlipidemia, Myocardial Infarction (MO), Pneumonia, Pulmonary Embolus (PE), Syncope Additional Past Medical History / Comment(s): STATES on Lipitor Prophyllactic. Afib paraxysmal; MO in 2009 and 2011; Mild Heart Valve Prob. Blood Clot Removed Between Heart and 5th and 6th Ribs. Aortic Aneurysm Last Myocardial Infarction Date:: 2011 History of Any Multi-Drug Resistant Organisms: None Reported Past Surgical History: Coronary Bypass/CABG, Heart Catheterization With Stent Additional Past Surgical History / Comment(s): 08/2009 CABG with 7 vessel bypass; C.Cath w/ Stents X2. Past Anesthesia/Blood Transfusion Reactions: No Reported Reaction Additional Past Anesthesia/Blood Transfusion Reaction / Comment(s): Pt received blood with CABG without reaction. Date of Last Stent Placement:: 02/13/12 Past Psychological History: No Psychological Hx Reported Smoking Status: Former smoker Past Alcohol Use History: None Reported Past Drug Use History: None Reported - Past Family History Father Family Medical History: Myocardial Infarction (MO) Additional Family Medical History / Comment(s): Father at the age of 58 yrs from a [place]. Mother Family Medical History: Coronary Artery Disease (CAD) Additional Family Medical History / Comment(s): Mother at age 80 yrs. Brother(s) Family Medical History: Myocardial Infarction (MO) Additional Family Medical History / Comment(s): One brother at the age of 31 yrs from a [place]. PT has other immediate family members with heart disease. Medications and Allergies Home Medications Medication Instructions Recorded Confirmed Type Nitroglycerin Sl Tabs [Nitrostat] 0.4 mg SUBLINGUAL Q5M PRN #30 tab 09/30/18 06/02/24 Rx Metoprolol Succinate (ER) [Toprol 50 mg PO HS 12/02/18 06/02/24 History XL] Sotalol [Betapace] 80 mg PO BID 12/02/18 06/02/24 History Apixaban [Eliquis] 5 mg PO BID 06/02/24 06/02/24 History Clopidogrel [Plavix] 75 mg PO DAILY 06/02/24 06/02/24 History Isosorbide Mononitrate ER [Imdur] 60 mg PO HS 06/02/24 06/02/24 History Metoprolol Succinate (ER) [Toprol 100 mg PO DAILY 06/02/24 06/02/24 History XL] Omeprazole [PriLOSEC] 40 mg PO DAILY 06/02/24 06/02/24 History Rosuvastatin Calcium [Crestor] 40 mg PO HS 06/02/24 06/02/24 History Allergies Allergy/AdvReac Type Severity Reaction Status Date / Time lisinopril Allergy Swelling/Ra Verified 06/02/24 07:55 sh Physical Exam Vitals: Vital Signs Temp Pulse Resp BP Pulse Ox 06/02/24 07:37 66 18 127/76 93 L 06/02/24 06:00 70 17 110/60 93 L 06/02/24 02:04 101 H 17 131/83 98 06/01/24 22:31 97.6 F 118 H 22 161/73 97 Intake and Output 06/01/24 06/02/24 06/02/24 22:59 06:59 14:59 Other: Weight 86.183 kg Results 06/01/24 23:21 06/02/24 13:01 Cardiac Enzymes 06/01/24 06/01/24 Range/Units 23:21 23:21 AST 180 H (17-59) U/L Troponin I 0.014 (0.000-0.034) ng/mL Coagulation 06/01/24 Range/Units 23:21 PT 11.4 (10.0-12.5) sec APTT 24.8 (22.0-30.0) sec CBC 06/01/24 Range/Units 23:21 WBC 6.3 (3.8-10.6) k/uL RBC 4.72 (4.30-5.90) m/uL Hgb 14.8 (13.0-17.5) gm/dL Hct 41.8 (39.0-53.0) % Plt Count 127 L (150-450) k/uL Comprehensive Metabolic Panel 06/01/24 Range/Units 23:21 Sodium 133 L (137-145) mmol/L Potassium 4.3 (3.5-5.1) mmol/L Chloride 103 (98-107) mmol/L Carbon Dioxide 21 L (22-30) mmol/L BUN 12 (9-20) mg/dL Creatinine 0.83 (0.66-1.25) mg/dL Glucose 127 H (74-99) mg/dL Calcium 9.3 (8.4-10.2) mg/dL AST 180 H (17-59) U/L ALT 146 H (4-49) U/L Alkaline Phosphatase 84 (38-126) U/L Total Protein 7.1 (6.3-8.2) g/dL Albumin 4.1 (3.5-5.0) g/dL Current Medications Generic Name Dose Route Start Last Admin Trade Name Freq PRN Reason Stop Dose Admin Acetaminophen 650 mg 06/02/24 01:42 Acetaminophen Tab 325 Mg Tab PO Q6HR PRN Mild Pain or Fever > 100.5 Apixaban 5 mg 06/02/24 09:30 Apixaban 5 Mg Tab PO BID COUNT INCLUDES THE [facility] Protocol Clopidogrel Bisulfate 75 mg 06/02/24 09:15 Clopidogrel 75 Mg Tab PO DAILY COUNT INCLUDES THE [facility] Isosorbide Mononitrate 60 mg 06/02/24 21:00 Isosorbide Mononitrate Er 60 Mg Tab.Er.24h PO HS COUNT INCLUDES THE [facility] Metoprolol Succinate 50 mg 06/02/24 09:00 06/02/24 08:20 Metoprolol Succinate (Er) 50 Mg Tab.Er.24h PO 50 mg DAILY COUNT INCLUDES THE [facility] Administration Metoprolol Tartrate 5 mg 06/02/24 01:51 Metoprolol Tartrate 5 Mg/5 Ml Vial IVP ONCE PRN Heart Rate - HIGH Metoprolol Tartrate 100 mg 06/02/24 21:00 Metoprolol Tartrate 50 Mg Tab PO HS COUNT INCLUDES THE [facility] Naloxone HCl 0.2 mg 06/02/24 01:42 Naloxone 0.4 Mg/Ml 1 Ml Vial IV Q2M PRN Opioid Reversal Nitroglycerin 0.4 mg 06/02/24 09:09 Nitroglycerin Sl Tabs 0.4 Mg Tab SUBLINGUAL Q5M PRN Chest Pain Non-Formulary Medication 40 mg 06/02/24 21:00 Rosuvastatin Calcium [Crestor] PO HS COUNT INCLUDES THE [facility] Sotalol HCl 80 mg 06/02/24 09:00 06/02/24 08:20 Sotalol 80 Mg Tab PO 80 mg BID COUNT INCLUDES THE [facility] Administration Intake and Output 06/01/24 06/02/24 06/02/24 22:59 06:59 14:59 Other: Weight 86.183 kg 06/01/24 23:21 06/01/24 23:21
[2024-06-02 18:23] VITALS: BP 146/76; PULSE 74; TEMP 99.1
[2024-06-02] MEDS ORDERED: ISOSORBIDE MONONITRATE ER 60 MG TAB.ER.24H PO SCH (21:00)
[2024-06-02] MEDS ORDERED: ATORVASTATIN 80 MG TAB PO SCH (21:00)
[2024-06-02] MEDS ORDERED: METOPROLOL TARTRATE 50 MG TAB PO SCH (21:00)
[2024-06-03] MEDS ORDERED: METOPROLOL SUCCINATE (ER) 100 MG TAB.ER.24H PO SCH (09:00)
== END 2024-06-02 19:46 | disposition left against medical advice (07) ==
LOC: EC 22:26 → 3SCARD 06-02 01:43 → 6NMEDSUR 06-02 11:39
PROVIDERS: ADMIT Hospitalist; ATTEND Hospitalist
DX: I48.0 Paroxysmal atrial fibrillation (principal); J98.11 Atelectasis; Z53.29 Procedure and treatment not carried out because of patient's decision for other reasons; I11.0 Hypertensive heart disease with heart failure; I50.22 Chronic systolic (congestive) heart failure; I08.3 Combined rheumatic disorders of mitral, aortic and tricuspid valves; I25.10 Atherosclerotic heart disease of native coronary artery without angina pectoris; E78.5 Hyperlipidemia, unspecified; I25.2 Old myocardial infarction; Z79.82 Long term (current) use of aspirin; Z79.02 Long term (current) use of antithrombotics/antiplatelets; Z79.01 Long term (current) use of anticoagulants; Z79.899 Other long term (current) drug therapy; Z87.891 Personal history of nicotine dependence; Z86.711 Personal history of pulmonary embolism; Z88.8 Allergy status to other drugs, medicaments and biological substances; Z95.1 Presence of aortocoronary bypass graft; Z95.5 Presence of coronary angioplasty implant and graft; Z82.49 Family history of ischemic heart disease and other diseases of the circulatory system
CPT/HCPCS: 96365; 96366; 96375; 99285; 36415; 93005; 84439; 83880; 80053 ×2; 84443; 83605; 84484 ×2; 85025; 85610; 85730; 84145; 71046; G0378 ×2; J0456; J0696